=== PATIENT | female | born 1945 | race Caucasian/White ===

== ENCOUNTER 2021-09-09 16:48 | Inpatient (IN) | payer MEDICARE, BC ==
[~2021-09-09] VITALS: Ht 167.6 cm; Wt 165.8 kg
[2021-09-09] MEDS ORDERED: AMLO-187 PO (16:59)
[2021-09-09] MEDS ORDERED: PARO30TA45 PO (16:59)
[2021-09-09] MEDS ORDERED: TERA5CAP3 PO (16:59)
[2021-09-09] MEDS ORDERED: OXYM7.5T PO (16:59)
--- NOTE | 2021-09-09 17:00 | NUR ---
ADMISSION PT ARRIVES VIA [facility] AT 1630. SHE IS ON NRB @15L. SHE IS DISORIENTED. TELEMETRY APPLIED, VS ASSESSED. PT IS UNABLE TO ANSWER HISTORY QUESTIONS. MEDICATION HISTORY OBTAINED FROM HER HOME PHARMACY, HER WAS UNABLE TO LIST HER HOME MEDS. THEY REPORT COVID VACCINE X 2, BUT SHE IS UNVACCINATED FOR THIS SEASON'S FLU.
[2021-09-09] MEDS ORDERED: INFLUENZA VAX SCREEN BY RX. MC ONE (17:15)
--- NOTE | 2021-09-09 18:25 | NUR ---
REPORTS PT HAS TAKEN COUMADIN IN THE PAST FOR AF, PHARMACY CONFIRMS THEY HAVE FILLED IT FOR HER BUT NOT RECENTLY. PT
[2021-09-09 19:00] LABS: BASO % 0 % (0-3); EOS % 0 % (0-3); HEMATOCRIT 43.5 % (36.0-47.0); HEMOGLOBIN 14.2 g/dL (12.0-15.5); LYMPH # 0.3 x10^3/uL (1.0-4.8); LYMPH % 6 % (24-48); MEAN CORPUSCULAR HEMOGLOBIN 31 pg (25-35); MEAN CORPUSCULAR HGB CONC 33 g/dL (31-37); MEAN CORPUSCULAR VOLUME 94 fL (79-100); MONO # 0.4 x10^3/uL (0.0-1.1); MONO % 8 % (0-9); NEUT # 4.6 x10^3/uL (1.8-7.7); NEUT % 86 % (31-73); PLATELET COUNT 116 x10^3/uL (140-400); RED BLOOD COUNT 4.61 x10^6/uL (3.50-5.40); RED CELL DISTRIBUTION WIDTH 16.5 % (11.5-14.5); WHITE BLOOD COUNT 5.3 x10^3/uL (4.0-11.0)
[2021-09-09 19:22] LABS: ALBUMIN 3.3 g/dL (3.4-5.0); ALBUMIN/GLOBULIN RATIO 0.8 (1.0-1.7); CALCIUM 8.3 mg/dL (8.5-10.1); CREATININE 2.1 mg/dL (0.6-1.0); POTASSIUM 5.4 mmol/L (3.5-5.1); TOTAL BILIRUBIN 0.7 mg/dL (0.2-1.0); TOTAL PROTEIN 7.2 g/dL (6.4-8.2)
[2021-09-09 19:24] LABS: % BANDS 5 % (0-9); % LYMPHS 4 % (24-48); % MONOS 10 % (0-10); % SEGS 81 % (35-66); PLT ESTIMATE DECREASED (ADEQUATE)
[2021-09-09 19:35] VITALS: BP 122/71
[2021-09-09] MEDS: TERAZOSIN 5 MG CAPSULE. PO SCH (21:00)
[2021-09-09 21:12] LABS: BASE EXCESS ABG 3 mmol/L (-3-3); HCO3 ABG 34 mmol/L (21-28); PO2 ABG 109 mmHg (65-108); SAT O2 ABG 97 % (92-99)
[2021-09-09 21:17] LABS: FIO2 ABG 100 (NRB); PCO2 ABG 83 mmHg (35-46)
[2021-09-09] MEDS ORDERED: FUROSEMIDE 40 MG/4 ML VIAL. IVP ONE (22:30)
[2021-09-09 23:15] VITALS: BP 100/71
[2021-09-10 01:03] LABS: PCO2 ABG 70 mmHg (35-46)
[2021-09-10 01:04] LABS: BASE EXCESS ABG 2 mmol/L (-3-3); HCO3 ABG 31 mmol/L (21-28); PO2 ABG 114 mmHg (65-108); SAT O2 ABG 98 % (92-99)
[2021-09-10 03:20] VITALS: BP 104/64
--- NOTE | 2021-09-10 06:38 | RAD ---
XR CHEST 1V 09/10/2021 6:29 AM INDICATION: Acute respiratory failure COMPARISON: 09/09/2021 TECHNIQUE: Portable frontal view of the chest is provided. FINDINGS: The cardiomediastinal silhouette is similar in appearance. Increased perihilar interstitial and alveo lar airspace disease. Trace right pleural effusion. No pneumothorax. Moderate osteoarthrosis of the glenohumeral joints. IMPRESSION: Increase in perihilar mixed interstitial and alveolar airspace disease as compared to prior examinati on suggestive of worsening pulmonary infiltrates or pulmonary edema. Electronically signed by: Steffany Peter MD (09/10/2021 6:36 AM) [facility]
[2021-09-10 07:00] VITALS: BP 105/69
[2021-09-10] MEDS ORDERED: cefTRIAXone IV Push 1 GM VIAL. IVP SCH (07:00)
--- NOTE | 2021-09-10 07:54 | CONS ---
DATE OF CONSULTATION: 09/10/2021 REASON FOR CONSULTATION: I was asked to see this 76-year-old lady for acute respiratory failure. HISTORY OF PRESENT ILLNESS: The patient is currently on BiPAP and does not answer any of my questions or follow my commands. All of the information was obtained from nursing staff and chart. She has had shortness of breath and decreased level of consciousness for the past couple of days. EMS was called. Her O2 saturation on arrival was 67%. The patient was taken to [facility]. Her was very poor historian. Apparently, she has had 48 hours of increased sleepiness. Per RN, she is not on home oxygen. Her BMI is 58.7. She has atrial fibrillation and is on Coumadin. Her INR is 3.7. The patient was transferred to [facility] for further evaluation. The patient was placed on BiPAP. Currently, she is on BiPAP 16/4, rate of 12, FiO2 of 50%. Her O2 saturation is 96%. PAST MEDICAL HISTORY: Unknown. She has atrial fibrillation. Her INR is elevated. She is on Coumadin. She has morbid obesity. She had been on Dilaudid and oxymorphone per Primary for pain. ALLERGIES: No known drug allergies. MEDICATIONS: She was given Lasix 40 mg IV overnight. Norvasc and Paxil. SOCIAL HISTORY: Unknown. She is not able to give me any information. FAMILY HISTORY: Unknown. She is not able to give me any information. REVIEW OF SYSTEMS: As mentioned as above, I have discussed the patient with RN. Other systems are otherwise negative. PHYSICAL EXAMINATION: GENERAL: This is a morbidly obese lady. VITAL SIGNS: Her O2 saturation on BiPAP 16/4, rate of 12, FiO2 of 50% is 96%, respiratory rate 20, heart rate 100, blood pressure 104/64, temperature 97.4. HEENT: Normocephalic, atraumatic. Pupils are equal, round, reactive to light. She has BiPAP mask on. NECK: Short, thick. CARDIOVASCULAR: Irregularly irregular rhythm. CHEST: Inspection is normal. LUNGS: There is bilateral diminished breath sounds, dullness at the bases. ABDOMEN: Soft and obese. Bowel sounds are good. EXTREMITIES: There is no edema. LYMPHATICS: There is no lymphadenopathy. NEUROLOGIC: She does not follow my commands. SKIN: Chronic changes. LABORATORY DATA: I reviewed the following lab data: Sodium 138, potassium 5.4, chloride 102, CO2 of 33, BUN 47, creatinine 2.1. BNP 7660. INR at [facility] 3.7. ABG at 9:00, pH 7.23, pCO2 of 83, pO2 of 109. Repeat ABG at midnight, pH 7.27, pCO2 of 70, pO2 of 111 on 50% BiPAP. WBC 5.3, hemoglobin 14.2, platelets 116. I ordered a stat portable chest x-ray which does show bilateral infiltrates. Compared to the chest x-ray done yesterday at [facility] shows worsening. IMPRESSION: 1. Acute hypoxemic hypercarbic respiratory failure secondary to acute congestive heart failure, systolic versus diastolic; pneumonia, doubt thromboembolic disease. Her INR is 3.7. 2. Abnormal chest x-ray. 3. Acute congestive heart failure. 4. Pneumonia. 5. Obesity, suspect obstructive sleep apnea-hypopnea syndrome and obesity hypoventilation syndrome. 6. Encephalopathy, multifactorial. 7. Acute kidney injury. 8. Hyperkalemia. 9. Atrial fibrillation, on anticoagulation. PLAN AND RECOMMENDATIONS: 1. Titrate FiO2 to keep O2 saturation 90%, not higher. She is hypercarbic. 2. Stat portable chest x-ray reviewed, it showed bilateral infiltrates. 3. Lasix was given. Keep intake less than output. Monitor creatinine and potassium. 4. I will add Rocephin and doxycycline. 5. Elevate head of bed. 6. Her INR is 3.7. I did recommend repeat. 7. Protonix for stress ulcer prophylaxis. 8. Start bronchodilator Atrovent only. She has atrial fibrillation. Avoid albuterol. 9. N.p.o. until she is fully awake. 10. ABG. 11. The findings and recommendations were discussed with RN. Thank you very much for allowing me to participate in care of this very nice lady. PRAVEEN DR: Parish TID: [id number]
[2021-09-10] MEDS: PANTOPRAZOLE IV PUSH 40 MG VIAL. IVP SCH (08:54)
[2021-09-10] MEDS: PARoxetine 20 MG TABLET PO SCH (08:54)
[2021-09-10] MEDS: DOXYCYCLINE HYCLATE 100 MG in IV DEXTROSE 5% 100ML 100 ML IV SCH ×2 (08:55→21:02)
[2021-09-10] MEDS: FLU VACC QUAD 21-22 (6MOS+) PF 0.5 ML SYRINGE. VAX IM ONE ×2 (09:00→10:25)
[2021-09-10] MEDS: IPRATROPIUM BROMIDE 0.5 MG/2.5 ML NEBU. NEB SCH ×4 (09:08→20:00)
[2021-09-10 09:34] LABS: BASE EXCESS ABG 3 mmol/L (-3-3); HCO3 ABG 30 mmol/L (21-28); PCO2 ABG 59 mmHg (35-46); PO2 ABG 72 mmHg (65-108); SAT O2 ABG 94 % (92-99)
[2021-09-10 09:35] LABS: FIO2 ABG 3L N.C.
[2021-09-10 10:43] VITALS: BP 96/56
--- NOTE | 2021-09-10 11:51 | PN ---
DATE: 09/10/2021 SUBJECTIVE: The patient was admitted yesterday as a transfer from [facility] with acute probably on chronic hypoxic hypercapnic respiratory failure. She has also supratherapeutic INR. On arrival here, her blood gas continued to show respiratory acidosis. Her pH was 7.23, pCO2 of 83 and bicarb was 34; and therefore, the patient was put on BiPAP machine and she was on it overnight and this morning her pH is up to 7.33, pCO2 down to 59, oxygen saturation was 72 and she is maintaining her oxygen saturation at 94% on 3 liters of oxygen by nasal cannula. PHYSICAL EXAMINATION: GENERAL: When I examined her, she looked well and was clearly in no apparent respiratory distress. She was somewhat pale, but not jaundiced or cyanosed. No lymphadenopathy, no thyromegaly, no jugular venous distention. No lower limb edema. VITAL SIGNS: Her heart rate was 100, blood pressure was 96/56, temperature was 98, respiratory rate was 16 and oxygen saturation was 91% on 3 liters of oxygen. HEAD, EYES, EARS, NOSE AND THROAT: Normocephalic, atraumatic. NECK: Supple. HEART: Normal first and second heart sounds. No gallop or murmur. CHEST: Clear to auscultation. No crepitation or rhonchi. ABDOMEN: Distended, soft, nontender. NEUROLOGIC: She was awake, alert, responding appropriately. All cranial nerves intact. She moves extremities without difficulty. She does have flapping tremor. Her intake and output are incompletely recorded. LABORATORY DATA: Showed white cell count 5300, hemoglobin 14; hematocrit 44; MCV 94 and platelet count of 116,000. Her chemistry is stable and showed a serum sodium 138, potassium 5.4, chloride 102, bicarbonate 33, anion gap of 3, BUN 47, creatinine 2.1. Estimated GFR was 23 mL per minute. Her glucose was 119, calcium was 8.3. Total bilirubin, AST, ALT, alkaline phosphatase were normal. Beta-natriuretic peptide was 7668. Total protein was 7.2, albumin was 3.3. ASSESSMENT: In summary, this is a 76-year-old female patient with acute on chronic hypoxic hypercapnic respiratory failure, likely multifactorial. She is on narcotic use as well as probable morbid obesity and obstructive sleep apnea. Other problems include hypertension, acute versus acute on chronic kidney injury. PLAN: She has an indwelling Auguste catheter. We did consult the patented hogshead assembler as well as the assistant track coach to assist with the management. Meanwhile, we will repeat her prothrombin time as well as BMP this morning and again tomorrow. CHEN/TEMITOPE/MELITA DR: Rigo TID: [id number]
[2021-09-10 12:15] LABS: CALCIUM 8.2 mg/dL (8.5-10.1); CREATININE 1.7 mg/dL (0.6-1.0); GFR 29.4; POTASSIUM 4.4 mmol/L (3.5-5.1)
[2021-09-10 12:16] LABS: PROTHROMBIN TIME PATIENT 34.8 SEC (11.7-14.0)
--- NOTE | 2021-09-10 12:27 | PDOC2 ---
CONSULT Date of Consult Date of Consult DATE: 09/10/21 TIME: 12:27 Reason for Consult Reason for Consult: CHF and atrial fibrillation Referring Physician Referring Physician: Dr. Us Identification/Chief Complaint Chief Complaint Shortness of breath Source Source: Chart review, Patient History of Present Illness Reason for Visit: 76-year-old morbidly obese female apparently was found hard to arouse by her this morning prompting EMS call. Upon arrival to [facility], she was found to be in acute on chronic hypoxic respiratory failure and hence transferred to [facility] for further management. Patient denied any chest pain, palpitations or syncope. According to her , she has been more somnolent and confused for last 2 to 3 days. Her Dilaudid was apparently decreased from 10 to 7.5 with concomitant oxymorphone use recently. Cardiology has been consulted for possible congestive heart failure and also atrial fibrillation. Patient stated that she was diagnosed with cardiac arrhythmia several years ago and placed on warfarin but she has not had any recent cardiology follow-up. She apparently had cardiac catheterization at [facility] and at [facility] more than 10 years ago and was told she did not have any blockages. Past Medical History Past Medical History Permanent atrial fibrillation Hypertension Morbid obesity Current Medications Current Medications Current Medications Info (FLU VACCINE SCREEN per RX) 1 each 1X ONCE ; Start 09/09/21 at 17:15; Stop 09/09/21 at 17:16; Status UNV Influenza Virus Vaccine Quadrival (Flulaval Quad [id number] Syringe) 0.5 ml ONCE ONCE VAX IM ; Start 09/10/21 at 09:00; Stop 09/10/21 at 09:01; Status DC Amlodipine Besylate (Norvasc) 10 mg DAILY PO Last administered on 09/10/21at 0 8:54; Start 09/10/21 at 09:00 Terazosin HCl (Hytrin) 5 mg HS PO Last administered on 09/09/21at 21:00; Start 09/09/21 at 21:00 Paroxetine HCl (Paxil) 60 mg DAILY PO Last administered on 09/10/21at 08:54; Start 09/10/21 at 09:00 Furosemide (Lasix) 40 mg 1X ONCE IVP Last administered on 09/09/21at 23:39; Start 09/09/21 at 22:30; Stop 09/09/21 at 22:31; Status DC Ipratropium [place] (Atrovent) 0.5 mg RTQID NEB Last administered on 09/10/21at 11:55; Start 09/10/21 at 08:00 Ceftriaxone Sodium (Rocephin) 1 gm Q24H IVP Last administered on 09/10/21at 08:54; Start 09/10/21 at 07:00 Doxycycline Hyclate 100 mg/ Dextrose 100 ml @ 50 mls/hr Q12HR IV Last administered on 09/10/21at 08:55; Start 09/10/21 at 09:00 Pantoprazole Sodium (PROTONIX VIAL for IV PUSH) 40 mg DAILYAC IVP Last administered on 09/10/21at 08:54; Start 09/10/21 at 07:30 Active Scripts Active Reported Oxymorphone Hcl 7.5 Mg Tab.er.12h 7.5 Mg PO BID Amlodipine Besylate 10 Mg Tablet 10 Mg PO DAILY Terazosin Hcl 5 Mg Capsule 5 Mg PO HS Paxil (Paroxetine Hcl) 30 Mg Tablet 60 Mg PO DAILY Allergies Allergies: Coded Allergies: No Known Drug Allergies (Unverified , 09/09/21) ROS General: YES: Fatigue PSYCHOLOGICAL ROS: No: Hallucinations Eyes: No Loss of vision HEENT: No: Epistaxis Respiratory: YES: Shortness of breath Cardiovascular: yes Edema; No Chest Pain Gastrointestinal: No Vomiting Genitourinary: No Hematuria Neurological: Yes Confusion; No Seizures Skin: No Rash Physical Exam General: Alert, mild distress HEENT: Atraumatic Lungs: Other (Scattered crepitations bilaterally) Heart: Other (Heart rate irregular) Abdomen: Soft Extremities: Other (1-2+ pitting with chronic changes and discoloration s uspicious for venous insufficiency) Psych/Mental Status: Mood NL Vitals VITALS Vital Signs Date Time Temp Pulse Resp B/P (MAP) Pulse Ox O2 Delivery O2 Flow Rate FiO2 09/10/21 11:57 94 Nasal Cannula 3.0 09/10/21 10:43 98.0 100 16 96/56 (69) 98.0 Labs Labs Laboratory Tests Test 09/09/21 18:55 09/09/21 21:05 09/10/21 00:00 09/10/21 09:00 White Blood Count 5.3 x10^3/uL (4.0-11.0) Red Blood Count 4.61 x10^6/uL (3.50-5.40) Hemoglobin 14.2 g/dL (12.0-15.5) Hematocrit 43.5 % (36.0-47.0) Mean Corpuscular Volume 94 fL (79-100) Mean Corpuscular Hemoglobin 31 pg (25-35) Mean Corpuscular Hemoglobin Concent 33 g/dL (31-37) Red Cell Distribution Width 16.5 % (11.5-14.5) Platelet Count 116 x10^3/uL (140-400) Neutrophils (%) (Auto) 86 % (31-73) Lymphocytes (%) (Auto) 6 % (24-48) Monocytes (%) (Auto) 8 % (0-9) Eosinophils (%) (Auto) 0 % (0-3) Basophils (%) (Auto) 0 % (0-3) Neutrophils # (Auto) 4.6 x10^3/uL (1.8-7.7) Lymphocytes # (Auto) 0.3 x10^3/uL (1.0-4.8) Monocytes # (Auto) 0.4 x10^3/uL (0.0-1.1) Eosinophils # (Auto) 0.0 x10^3/uL (0.0-0.7) Basophils # (Auto) 0.0 x10^3/uL (0.0-0.2) Segmented Neutrophils % 81 % (35-66) Band Neutrophils % 5 % (0-9) Lymphocytes % 4 % (24-48) Monocytes % 10 % (0-10) Platelet Estimate Decreased (ADEQUATE) Sodium Level 138 mmol/L (136-145) Potassium Level 5.4 mmol/L (3.5-5.1) Chloride Level 102 mmol/L (98-107) Carbon Dioxide Level 33 mmol/L (21-32) Anion Gap 3 (6-14) Blood Urea Nitrogen 47 mg/dL (7-20) Creatinine 2.1 mg/dL (0.6-1.0) Estimated GFR (Cockcroft-Gault) 23.0 BUN/Creatinine Ratio 22 (6-20) Glucose Level 119 mg/dL (70-99) Calcium Level 8.3 mg/dL (8.5-10.1) Total Bilirubin 0.7 mg/dL (0.2-1.0) Aspartate Amino Transf (AST/SGOT) 21 U/L (15-37) Alanine Aminotransferase (ALT/SGPT) 26 U/L (14-59) Alkaline Phosphatase 94 U/L (46-116) ZD-[id number]-[id number]-Type Natriuretic Peptide 7660 pg/mL (0-124) Total Protein 7.2 g/dL (6.4-8.2) Albumin 3.3 g/dL (3.4-5.0) Albumin/Globulin Ratio 0.8 (1.0-1.7) O2 Saturation 97 % (92-99) 98 % (92-99) 94 % (92-99) Arterial Blood pH 7.23 (7.35-7.45) 7.27 (7.35-7.45) 7.33 (7.35-7.45) Arterial Blood pCO2 at Patient Temp 83 mmHg (35-46) 70 mmHg (35-46) 59 mmHg (35-46) Arterial Blood pO2 at Patient Temp 109 mmHg (65-108) 114 mmHg (65-108) 72 mmHg (65-108) Arterial Blood HCO3 34 mmol/L (21-28) 31 mmol/L (21-28) 30 mmol/L (21-28) Arterial Blood Base Excess 3 mmol/L (-3-3) 2 mmol/L (-3-3) 3 mmol/L (-3-3) FiO2 100 (nrb) 50 (bipap) 3l n.c. Test 09/10/21 11:54 Prothrombin Time 34.8 SEC (11.7-14.0) Prothromb Time International Ratio 3.6 (0.8-1.1) Sodium Level 140 mmol/L (136-145) Potassium Level 4.4 mmol/L (3.5-5.1) Chloride Level 102 mmol/L (98-107) Carbon Dioxide Level 35 mmol/L (21-32) Anion Gap 3 (6-14) Blood Urea Nitrogen 45 mg/dL (7-20) Creatinine 1.7 mg/dL (0.6-1.0) Estimated GFR (Cockcroft-Gault) 29.4 Glucose Level 128 mg/dL (70-99) Calcium Level 8.2 mg/dL (8.5-10.1) Laboratory Tests Test 09/09/21 18:55 11/5/21 21:05 09/10/21 00:00 09/10/21 09:00 White Blood Count 5.3 x10^3/uL (4.0-11.0) Red Blood Count 4.61 x10^6/uL (3.50-5.40) Hemoglobin 14.2 g/dL (12.0-15.5) Hematocrit 43.5 % (36.0-47.0) Mean Corpuscular Volume 94 fL (79-100) Mean Corpuscular Hemoglobin 31 pg (25-35) Mean Corpuscular Hemoglobin Concent 33 g/dL (31-37) Red Cell Distribution Width 16.5 % (11.5-14.5) Platelet Count 116 x10^3/uL (140-400) Neutrophils (%) (Auto) 86 % (31-73) Lymphocytes (%) (Auto) 6 % (24-48) Monocytes (%) (Auto) 8 % (0-9) Eosinophils (%) (Auto) 0 % (0-3) Basophils (%) (Auto) 0 % (0-3) Neutrophils # (Auto) 4.6 x10^3/uL (1.8-7.7) Lymphocytes # (Auto) 0.3 x10^3/uL (1.0-4.8) Monocytes # (Auto) 0.4 x10^3/uL (0.0-1.1) Eosinophils # (Auto) 0.0 x10^3/uL (0.0-0.7) Basophils # (Auto) 0.0 x10^3/uL (0.0-0.2) Segmented Neutrophils % 81 % (35-66) Band Neutrophils % 5 % (0-9) Lymphocytes % 4 % (24-48) Monocytes % 10 % (0-10) Platelet Estimate Decreased (ADEQUATE) Sodium Level 138 mmol/L (136-145) Potassium Level 5.4 mmol/L (3.5-5.1) Chloride Level 102 mmol/L (98-107) Carbon Dioxide Level 33 mmol/L (21-32) Anion Gap 3 (6-14) Blood Urea Nitrogen 47 mg/dL (7-20) Creatinine 2.1 mg/dL (0.6-1.0) Estimated GFR (Cockcroft-Gault) 23.0 BUN/Creatinine Ratio 22 (6-20) Glucose Level 119 mg/dL (70-99) Calcium Level 8.3 mg/dL (8.5-10.1) Total Bilirubin 0.7 mg/dL (0.2-1.0) Aspartate Amino Transf (AST/SGOT) 21 U/L (15-37) Alanine Aminotransferase (ALT/SGPT) 26 U/L (14-59) Alkaline Phosphatase 94 U/L (46-116) KP-[id number]-G-Type Natriuretic Peptide 7660 pg/mL (0-124) Total Protein 7.2 g/dL (6.4-8.2) Albumin 3.3 g/dL (3.4-5.0) Albumin/Globulin Ratio 0.8 (1.0-1.7) O2 Saturation 97 % (92-99) 98 % (92-99) 94 % (92-99) Arterial Blood pH 7.23 (7.35-7.45) 7.27 (7.35-7.45) 7.33 (7.35-7.45) Arterial Blood pCO2 at Patient Temp 83 mmHg (35-46) 70 mmHg (35-46) 59 mmHg (35-46) Arterial Blood pO2 at Patient Temp 109 mmHg (65-108) 114 mmHg (65-108) 72 mmHg (65-108) Arterial Blood HCO3 34 mmol/L (21-28) 31 mmol/L (21-28) 30 mmol/L (21-28) Arterial Blood Base Excess 3 mmol/L (-3-3) 2 mmol/L (-3-3) 3 mmol/L (-3-3) FiO2 100 (nrb) 50 (bipap) 3l n.c. Test 09/10/21 11:54 Prothrombin Time 34.8 SEC (11.7-14.0) Prothromb Time International Ratio 3.6 (0.8-1.1) Sodium Level 140 mmol/L (136-145) Potassium Level 4.4 mmol/L (3.5-5.1) Chloride Level 102 mmol/L (98-107) Carbon Dioxide Level 35 mmol/L (21-32) Anion Gap 3 (6-14) Blood Urea Nitrogen 45 mg/dL (7-20) Creatinine 1.7 mg/dL (0.6-1.0) Estimated GFR (Cockcroft-Gault) 29.4 Glucose Level 128 mg/dL (70-99) Calcium Level 8.2 mg/dL (8.5-10.1) Assessment/Plan Assessment/Plan 1. Acute respiratory failure, multifactorial secondary to combination of acute on chronic diastolic heart failure, pneumonia, PHYLICIA/obesity hypoventilation. Pulmonary team following. 2. Acute on chronic diastolic heart failure. Continue gentle diuresis with close monitoring of BUN/creatinine. Check 2D echo to assess LV systolic function. 3. Atrial fibrillation, most probably permanent, rate relatively well controlled. Hold warfarin for supratherapeutic INR. 4. Acute on chronic renal insufficiency, hyperkalemia: Consult nephrology team. 5. Hypertension: Controlled Thank you for your consultation EDWIN EAST MD Sep 10, 2021 12:27
--- NOTE | 2021-09-10 13:52 | HP ---
DATE OF SERVICE: 09/10/2021 ADMIT DATE: 09/09/2021 HISTORY OF PRESENT ILLNESS: The patient is a 76-year-old female patient who presented to the Emergency Room of [facility] with shortness of breath. According to her, she had had the flu shot done about 8 days ago and her noted that she has started developing shortness of breath that has worsened; however, it has been reported that the patient has been fatigued for the last 2 months without any inciting event, trauma or other changes in medication or overall health. She reports the patient had to be aroused by family in the morning before admission, prompting them to call EMS. On arrival, the patient was found to be hypoxic with oxygen saturation of only 67% on room air; otherwise, hemodynamically stable. Her oxygen saturation improved with nonrebreather mask en route to the hospital. There is no reported trauma, change in medication, foul play or other concerning exposure or stimulus per family on the scene. On arrival, however, the patient denied any chest pain and the only complaint is shortness of breath. Her and son who came, they reported the patient has 48 hours of increased sleepiness and confusion without any trauma. She admits only medication change with a decrease in her Dilaudid from 10 to 7.5 with concomitant oxymorphone use as the patient has no prior cardiac or diabetic history. She is on warfarin for DVT. She was extensively investigated in the Emergency Room and has had lab work as well as imaging studies. Her lab work was unremarkable except for mild thrombocytopenia. She has impaired kidney function. Her troponin I was slightly elevated at 60, with the normal range between 4-50. Her beta natriuretic peptide was high at 6916. Her serum creatinine was high at 2.1. Unfortunately, there are no other labs to compare with. Her arterial blood gas showed a pH of 7.29, pCO2 of 78, pO2 of 70, bicarbonate 37 and oxygen saturation was 91% on room air. Urinalysis is essentially unremarkable and tox screen was positive for opiates, negative for all other medication. Her chest x-ray showed the heart is enlarged. Lungs are hypoextended, central pulmonary vasculature is prominent. There is diffuse interstitial prominence, small right pleural effusion and trace fluid along the minor fissure, no pneumothorax; severe bilateral glenohumeral osteoarthrosis with multiple surgical ossified bodies bilaterally. The patient was treated with furosemide and was started on BiPAP machine and was transferred to [facility] with diagnosis of acute on chronic hypoxic hypercapnic respiratory failure, fluid overload, supratherapeutic INR and opiate dependence. PAST MEDICAL HISTORY: Significant for hypertension, chronic kidney disease, generalized osteoarthritis. PAST SURGICAL HISTORY: Significant for bilateral cataract extraction, tonsillectomy, colonoscopy and esophagogastroduodenoscopy. ALLERGIES: She has no known drug allergies. MEDICATIONS: She is currently on the following medications: She is on terazosin 5 mg at bedtime, amlodipine 10 mg once a day, oxymorphone 7.5 mg twice a day, paroxetine 30 mg daily. FAMILY HISTORY: She has one brother and two sisters, younger and alive. Her brother has coronary artery disease. Sisters are healthy. Her father in his 80s and mother also in her 80s, the cause of is not known to her. SOCIAL HISTORY: She is . She has 2 sons. She never smoked, does not drink alcohol or recreational drugs. She is a housewife. REVIEW OF SYSTEMS: The patient denied any blurring of vision, has bilateral cataract extraction, but denied any glaucoma or macular degeneration. Denied any earache, tinnitus or sensorineural deafness. Denied any nosebleed, stuffy nose or postnasal drip. Denied any sore throat, sore tongue, toothache, hoarseness of voice or difficulty swallowing. Denied any dysuria, frequency or hematuria. Denied any chest pain. Did complain of shortness of breath, but denied any orthopnea or paroxysmal nocturnal dyspnea. Denied any cough, phlegm or hemoptysis. Denied any dizziness, lightheadedness or vertigo. PHYSICAL EXAMINATION: GENERAL: On arrival to the Emergency Room, the patient was somewhat tachypneic, tachycardic. She was pale, but no jaundice, cyanosis, no lymphadenopathy, no thyromegaly, no jugular venous distention. No limb edema. VITAL SIGNS: Her heart rate was 120, blood pressure 122/67, temperature 97.9, respiratory rate 20, and oxygen saturation was 93%. HEAD, EYES, EARS, NOSE, AND THROAT: Normocephalic, atraumatic. NECK: Supple. HEART: Normal first and second heart sounds. No gallop, rub or murmur. CHEST: Clear to auscultation. No crepitation or rhonchi. ABDOMEN: Distended, soft, nontender, no guarding or rigidity. No organomegaly. All hernial orifice intact. Bowel sounds normal. NEUROLOGIC: She was somewhat lethargic, alert to time and place. Her cranial nerves are grossly intact. She has normal motor and sensory function with no focal deficit. LABORATORY DATA: While in the Emergency Room, she had lab work showed a white cell count of 5300, hemoglobin 14.7, hematocrit 45, MCV 95 and platelet count of 137,000 with a manual differential showed 86% polymorphs, 7% lymphocytes. Her arterial blood gas showed a pH of 7.29, pCO2 of 78, pO2 of 70, bicarbonate 37 and oxygen saturation was 91% on FiO2 of 21%. Her prothrombin time was 37.6, INR of 3.7 and APTT was 39. Her chemistry showed a serum sodium 137, potassium 5.1, chloride 100, bicarbonate 33, anion gap of 4, BUN 45, creatinine 2.1. Estimated GFR was 23 mL per minute. Her glucose 142. Lactic acid was 1, calcium was 8.6. Total bilirubin, AST, ALT, alkaline phosphatase are normal. Her glucose 142, calcium was 8.6. Total bilirubin, AST, ALT, alkaline phosphatase are normal. CK was 46. Ammonia was 28. Troponin I high sensitivity was 60. Beta natriuretic peptide was 6916, total protein 7.1, albumin was 2.5. Her CT scan of the head showed no acute intracranial process. She has mild cerebral volume loss, mild chronic small vessel ischemic disease and her chest x-ray showed the heart is enlarged. Lungs are hypoextended, central pulmonary vasculature is prominent. There is diffuse interstitial prominence, small right pleural effusion and trace fluid along with minor fissure. No pneumothorax. Severe bilateral glenohumeral osteoarthrosis with multiple surgical ossified bodies bilaterally. ASSESSMENT AND PLAN: The patient was diagnosed with acute hypoxic hypercapnic respiratory failure, probably multifactorial including narcotic use, probably morbid obesity and obstructive sleep apnea. She does have supratherapeutic INR. Chronic versus acute on chronic kidney injury and opiate dependence. The patient was admitted to [facility]. We have consulted the complaint adjuster. She was started on BiPAP machine and recommended to continue to monitor all her labs and consult the complaint adjuster as well as postal service mail processor. AMM/EFRA/CELE DR: Rigo TID: [id number]
[2021-09-10 15:12] VITALS: BP 104/76
[2021-09-10 19:25] VITALS: BP 149/72
[2021-09-10] MEDS: TERAZOSIN 5 MG CAPSULE. PO SCH (21:02)
[2021-09-10] MEDS: ACETAMINOPHEN 500 MG TABLET PO PRN (22:30)
[2021-09-10] MEDS: LIDOCAINE (700MG/PATCH) PATCH. TD SCH (22:31)
[2021-09-10 23:38] VITALS: BP 111/71
[2021-09-11 03:40] VITALS: BP 127/82
[2021-09-11 04:01] LABS: BASO % 0 % (0-3); EOS % 0 % (0-3); HEMATOCRIT 42.1 % (36.0-47.0); HEMOGLOBIN 13.7 g/dL (12.0-15.5); LYMPH # 0.4 x10^3/uL (1.0-4.8); LYMPH % 10 % (24-48); MEAN CORPUSCULAR HEMOGLOBIN 30 pg (25-35); MEAN CORPUSCULAR HGB CONC 33 g/dL (31-37); MEAN CORPUSCULAR VOLUME 93 fL (79-100); MONO # 0.3 x10^3/uL (0.0-1.1); MONO % 8 % (0-9); NEUT # 3.1 x10^3/uL (1.8-7.7); NEUT % 82 % (31-73); PLATELET COUNT 111 x10^3/uL (140-400); RED BLOOD COUNT 4.54 x10^6/uL (3.50-5.40); RED CELL DISTRIBUTION WIDTH 15.9 % (11.5-14.5); WHITE BLOOD COUNT 3.8 x10^3/uL (4.0-11.0)
[2021-09-11 04:52] LABS: ALBUMIN 2.8 g/dL (3.4-5.0); ALBUMIN/GLOBULIN RATIO 0.8 (1.0-1.7); CALCIUM 8.1 mg/dL (8.5-10.1); CREATININE 1.4 mg/dL (0.6-1.0); GFR 36.8; POTASSIUM 4.2 mmol/L (3.5-5.1); TOTAL BILIRUBIN 0.8 mg/dL (0.2-1.0); TOTAL PROTEIN 6.3 g/dL (6.4-8.2)
--- NOTE | 2021-09-11 07:30 | PDOC ---
PULMONARY PROGRESS NOTES DATE: 09/11/21 TIME: 07:28 Subjective alert on bipap sob better not on home 02 Vitals Vital Signs Date Time Temp Pulse Resp B/P (MAP) Pulse Ox O2 Delivery O2 Flow Rate FiO2 09/11/21 05:42 97 BiPAP/CPAP 09/11/21 03:40 82 22 127/82 (97) 09/10/21 23:38 98.1 3.0 98.1 ROS: No Nausea General: Alert HEENT: Other (nc at perrl bipap mask) Lungs: Crackles Cardiovascular: S1 Abdomen: Soft, Non-tender, Other (obese) Neuro Exam: Alert Extremities: Other (edema) Skin: Warm Labs Laboratory Tests Test 09/09/21 18:55 09/09/21 21:05 09/10/21 00:00 09/10/21 09:00 White Blood Count 5.3 x10^3/uL (4.0-11.0) Red Blood Count 4.61 x10^6/uL (3.50-5.40) Hemoglobin 14.2 g/dL (12.0-15.5) Hematocrit 43.5 % (36.0-47.0) Mean Corpuscular Volume 94 fL (79-100) Mean Corpuscular Hemoglobin 31 pg (25-35) Mean Corpuscular Hemoglobin Concent 33 g/dL (31-37) Red Cell Distribution Width 16.5 % (11.5-14.5) Platelet Count 116 x10^3/uL (140-400) Neutrophils (%) (Auto) 86 % (31-73) Lymphocytes (%) (Auto) 6 % (24-48) Monocytes (%) (Auto) 8 % (0-9) Eosinophils (%) (Auto) 0 % (0-3) Basophils (%) (Auto) 0 % (0-3) Neutrophils # (Auto) 4.6 x10^3/uL (1.8-7.7) Lymphocytes # (Auto) 0.3 x10^3/uL (1.0-4.8) Monocytes # (Auto) 0.4 x10^3/uL (0.0-1.1) Eosinophils # (Auto) 0.0 x10^3/uL (0.0-0.7) Basophils # (Auto) 0.0 x10^3/uL (0.0-0.2) Segmented Neutrophils % 81 % (35-66) Band Neutrophils % 5 % (0-9) Lymphocytes % 4 % (24-48) Monocytes % 10 % (0-10) Platelet Estimate Decreased (ADEQUATE) Sodium Level 138 mmol/L (136-145) Potassium Level 5.4 mmol/L (3.5-5.1) Chloride Level 102 mmol/L (98-107) Carbon Dioxide Level 33 mmol/L (21-32) Anion Gap 3 (6-14) Blood Urea Nitrogen 47 mg/dL (7-20) Creatinine 2.1 mg/dL (0.6-1.0) Estimated GFR (Cockcroft-Gault) 23.0 BUN/Creatinine Ratio 22 (6-20) Glucose Level 119 mg/dL (70-99) Calcium Level 8.3 mg/dL (8.5-10.1) Total Bilirubin 0.7 mg/dL (0.2-1.0) Aspartate Amino Transf (AST/SGOT) 21 U/L (15-37) Alanine Aminotransferase (ALT/SGPT) 26 U/L (14-59) Alkaline Phosphatase 94 U/L (46-116) DJ-Ekh-Y-Type Natriuretic Peptide 7660 pg/mL (0-124) Total Protein 7.2 g/dL (6.4-8.2) Albumin 3.3 g/dL (3.4-5.0) Albumin/Globulin Ratio 0.8 (1.0-1.7) O2 Saturation 97 % (92-99) 98 % (92-99) 94 % (92-99) Arterial Blood pH 7.23 (7.35-7.45) 7.27 (7.35-7.45) 7.33 (7.35-7.45) Arterial Blood pCO2 at Patient Temp 83 mmHg (35-46) 70 mmHg (35-46) 59 mmHg (35-46) Arterial Blood pO2 at Patient Temp 109 mmHg (65-108) 114 mmHg (65-108) 72 mmHg (65-108) Arterial Blood HCO3 34 mmol/L (21-28) 31 mmol/L (21-28) 30 mmol/L (21-28) Arterial Blood Base Excess 3 mmol/L (-3-3) 2 mmol/L (-3-3) 3 mmol/L (-3-3) FiO2 100 (nrb) 50 (bipap) 3l n.c. Test 09/10/21 11:54 09/11/21 03:30 Prothrombin Time 34.8 SEC (11.7-14.0) Prothromb Time International Ratio 3.6 (0.8-1.1) Sodium Level 140 mmol/L (136-145) 141 mmol/L (136-145) Potassium Level 4.4 mmol/L (3.5-5.1) 4.2 mmol/L (3.5-5.1) Chloride Level 102 mmol/L (98-107) 104 mmol/L (98-107) Carbon Dioxide Level 35 mmol/L (21-32) 36 mmol/L (21-32) Anion Gap 3 (6-14) 1 (6-14) Blood Urea Nitrogen 45 mg/dL (7-20) 37 mg/dL (7-20) Creatinine 1.7 mg/dL (0.6-1.0) 1.4 mg/dL (0.6-1.0) Estimated GFR (Cockcroft-Gault) 29.4 36.8 Glucose Level 128 mg/dL (70-99) 95 mg/dL (70-99) Calcium Level 8.2 mg/dL (8.5-10.1) 8.1 mg/dL (8.5-10.1) White Blood Count 3.8 x10^3/uL (4.0-11.0) Red Blood Count 4.54 x10^6/uL (3.50-5.40) Hemoglobin 13.7 g/dL (12.0-15.5) Hematocrit 42.1 % (36.0-47.0) Mean Corpuscular Volume 93 fL (79-100) Mean Corpuscular Hemoglobin 30 pg (25-35) Mean Corpuscular Hemoglobin Concent 33 g/dL (31-37) Red Cell Distribution Width 15.9 % (11.5-14.5) Platelet Count 111 x10^3/uL (140-400) Neutrophils (%) (Auto) 82 % (31-73) Lymphocytes (%) (Auto) 10 % (24-48) Monocytes (%) (Auto) 8 % (0-9) Eosinophils (%) (Auto) 0 % (0-3) Basophils (%) (Auto) 0 % (0-3) Neutrophils # (Auto) 3.1 x10^3/uL (1.8-7.7) Lymphocytes # (Auto) 0.4 x10^3/uL (1.0-4.8) Monocytes # (Auto) 0.3 x10^3/uL (0.0-1.1) Eosinophils # (Auto) 0.0 x10^3/uL (0.0-0.7) Basophils # (Auto) 0.0 x10^3/uL (0.0-0.2) BUN/Creatinine Ratio 26 (6-20) Total Bilirubin 0.8 mg/dL (0.2-1.0) Aspartate Amino Transf (AST/SGOT) 20 U/L (15-37) Alanine Aminotransferase (ALT/SGPT) 27 U/L (14-59) Alkaline Phosphatase 81 U/L (46-116) Ammonia 13 mcmol/L (11-34) Total Protein 6.3 g/dL (6.4-8.2) Albumin 2.8 g/dL (3.4-5.0) Albumin/Globulin Ratio 0.8 (1.0-1.7) Laboratory Tests Test 09/10/21 09:00 09/10/21 11:54 09/11/21 03:30 O2 Saturation 94 % (92-99) Arterial Blood pH 7.33 (7.35-7.45) Arterial Blood pCO2 at Patient Temp 59 mmHg (35-46) Arterial Blood pO2 at Patient Temp 72 mmHg (65-108) Arterial Blood HCO3 30 mmol/L (21-28) Arterial Blood Base Excess 3 mmol/L (-3-3) FiO2 3l n.c. Prothrombin Time 34.8 SEC (11.7-14.0) Prothromb Time International Ratio 3.6 (0.8-1.1) Sodium Level 140 mmol/L (136-145) 141 mmol/L (136-145) Potassium Level 4.4 mmol/L (3.5-5.1) 4.2 mmol/L (3.5-5.1) Chloride Level 102 mmol/L (98-107) 104 mmol/L (98-107) Carbon Dioxide Level 35 mmol/L (21-32) 36 mmol/L (21-32) Anion Gap 3 (6-14) 1 (6-14) Blood Urea Nitrogen 45 mg/dL (7-20) 37 mg/dL (7-20) Creatinine 1.7 mg/dL (0.6-1.0) 1.4 mg/dL (0.6-1.0) Estimated GFR (Cockcroft-Gault) 29.4 36.8 Glucose Level 128 mg/dL (70-99) 95 mg/dL (70-99) Calcium Level 8.2 mg/dL (8.5-10.1) 8.1 mg/dL (8.5-10.1) White Blood Count 3.8 x10^3/uL (4.0-11.0) Red Blood Count 4.54 x10^6/uL (3.50-5.40) Hemoglobin 13.7 g/dL (12.0-15.5) Hematocrit 42.1 % (36.0-47.0) Mean Corpuscular Volume 93 fL (79-100) Mean Corpuscular Hemoglobin 30 pg (25-35) Mean Corpuscular Hemoglobin Concent 33 g/dL (31-37) Red Cell Distribution Width 15.9 % (11.5-14.5) Platelet Count 111 x10^3/uL (140-400) Neutrophils (%) (Auto) 82 % (31-73) Lymphocytes (%) (Auto) 10 % (24-48) Monocytes (%) (Auto) 8 % (0-9) Eosinophils (%) (Auto) 0 % (0-3) Basophils (%) (Auto) 0 % (0-3) Neutrophils # (Auto) 3.1 x10^3/uL (1.8-7.7) Lymphocytes # (Auto) 0.4 x10^3/uL (1.0-4.8) Monocytes # (Auto) 0.3 x10^3/uL (0.0-1.1) Eosinophils # (Auto) 0.0 x10^3/uL (0.0-0.7) Basophils # (Auto) 0.0 x10^3/uL (0.0-0.2) BUN/Creatinine Ratio 26 (6-20) Total Bilirubin 0.8 mg/dL (0.2-1.0) Aspartate Amino Transf (AST/SGOT) 20 U/L (15-37) Alanine Aminotransferase (ALT/SGPT) 27 U/L (14-59) Alkaline Phosphatase 81 U/L (46-116) Ammonia 13 mcmol/L (11-34) Total Protein 6.3 g/dL (6.4-8.2) Albumin 2.8 g/dL (3.4-5.0) Albumin/Globulin Ratio 0.8 (1.0-1.7) Medications Active Scripts Medications Dose Route/Sig Max Daily Dose Days Date Category Oxymorphone Hcl 7.5 Mg Tab.er.12h 7.5 Mg PO BID 09/09/21 Reported Amlodipine Besylate 10 Mg Tablet 10 Mg PO DAILY 09/09/21 Reported Terazosin Hcl 5 Mg Capsule 5 Mg PO HS 09/09/21 Reported Paxil (Paroxetine Hcl) 30 Mg Tablet 60 Mg PO DAILY 09/09/21 Reported Impression . IMPRESSION: 1. Acute hypoxemic hypercarbic respiratory failure secondary to acute congestive heart failure, systolic versus diastolic; pneumonia, doubt thromboembolic disease. Her INR is 3.7. 2. Abnormal chest x-ray. 3. Acute congestive heart failure. 4. Pneumonia. 5. Obesity, suspect obstructive sleep apnea-hypopnea syndrome and obesity hypoventilation syndrome. 6. Encephalopathy, multifactorial. 7. Acute kidney injury. 8. Hyperkalemia. 9. Atrial fibrillation, on anticoagulation. Plan . PLAN AND RECOMMENDATIONS: 1. Titrate FiO2 to keep O2 saturation 90%, not higher. She is hypercarbic. 2. chest x-ray reviewed, it showed bilateral infiltrates. 3. Lasix was given. Keep intake less than output. Monitor creatinine and potassium. 4. Rocephin and doxycycline. 5. Elevate head of bed. 6. fu inr 7. Protonix for stress ulcer prophylaxis. 8. bronchodilator Atrovent only. She has atrial fibrillation. Avoid albuterol. 9. bipap setting reviewed, prn during day cont at night she would need psg as outpt The findings and recommendations were discussed with STACEY PRESTON MD Sep 11, 2021 07:30
[2021-09-11] MEDS: IPRATROPIUM BROMIDE 0.5 MG/2.5 ML NEBU. NEB SCH ×4 (07:36→20:49)
[2021-09-11 07:47] VITALS: BP 143/67
[2021-09-11] MEDS: PARoxetine 20 MG TABLET PO SCH (08:45)
[2021-09-11] MEDS: PANTOPRAZOLE IV PUSH 40 MG VIAL. IVP SCH (08:45)
[2021-09-11] MEDS: DOXYCYCLINE HYCLATE 100 MG in IV DEXTROSE 5% 100ML 100 ML IV SCH ×2 (08:46→22:11)
[2021-09-11] MEDS: PATCH REMOVAL. MC SCH (08:48)
--- NOTE | 2021-09-11 09:34 | PDOC ---
PROGRESS NOTES Date of Service: DATE: 09/11/21 TIME: 09:34 Subjective Subjective Feeling better today with improvement in dyspnea Objective Objective Vital Signs Date Time Temp Pulse Resp B/P (MAP) Pulse Ox O2 Delivery O2 Flow Rate FiO2 09/11/21 08:45 97 143/67 09/11/21 07:47 98.2 19 94 Nasal Cannula 3.0 98.2 Intake and Output 09/11/21 06:59 Intake Total 1680 ml Output Total 1750 ml Balance -70 ml Intake Oral 1180 ml IV Total 500 ml Output Urine Total 1750 ml Physical Exam Abdomen: Soft Heart: Other (Heart rate irregular) Extremities: Other (1-2+ pitting with chronic changes and discoloration suspicious for venous insufficiency) General: Alert, mild distress HEENT: Atraumatic Lungs: Other (Scattered crepitations bilaterally) Psych/Mental Status: Mood NL Assessment Assessment 1. Acute respiratory failure, multifactorial secondary to combination of acute on chronic diastolic heart failure, pneumonia, PHYLICIA/obesity hypoventilation. Pulmonary team following. 2. Acute on chronic diastolic heart failure. Continue gentle diuresis with close monitoring of BUN/creatinine. Check 2D echo to assess LV systolic function. 3. Atrial fibrillation, most probably permanent, rate relatively well controlled. Hold warfarin for supratherapeutic INR. 4. Acute on chronic renal insufficiency, hyperkalemia: Consult nephrology team. 5. Hypertension: Controlled Comment Review of Relevant I have reviewed the following items frank (where applicable) has been applied. Labs Laboratory Tests Test 09/10/21 11:54 09/11/21 03:30 Prothrombin Time 34.8 SEC (11.7-14.0) Prothromb Time International Ratio 3.6 (0.8-1.1) Sodium Level 140 mmol/L (136-145) 141 mmol/L (136-145) Potassium Level 4.4 mmol/L (3.5-5.1) 4.2 mmol/L (3.5-5.1) Chloride Level 102 mmol/L (98-107) 104 mmol/L (98-107) Carbon Dioxide Level 35 mmol/L (21-32) 36 mmol/L (21-32) Anion Gap 3 (6-14) 1 (6-14) Blood Urea Nitrogen 45 mg/dL (7-20) 37 mg/dL (7-20) Creatinine 1.7 mg/dL (0.6-1.0) 1.4 mg/dL (0.6-1.0) Estimated GFR (Cockcroft-Gault) 29.4 36.8 Glucose Level 128 mg/dL (70-99) 95 mg/dL (70-99) Calcium Level 8.2 mg/dL (8.5-10.1) 8.1 mg/dL (8.5-10.1) White Blood Count 3.8 x10^3/uL (4.0-11.0) Red Blood Count 4.54 x10^6/uL (3.50-5.40) Hemoglobin 13.7 g/dL (12.0-15.5) Hematocrit 42.1 % (36.0-47.0) Mean Corpuscular Volume 93 fL (79-100) Mean Corpuscular Hemoglobin 30 pg (25-35) Mean Corpuscular Hemoglobin Concent 33 g/dL (31-37) Red Cell Distribution Width 15.9 % (11.5-14.5) Platelet Count 111 x10^3/uL (140-400) Neutrophils (%) (Auto) 82 % (31-73) Lymphocytes (%) (Auto) 10 % (24-48) Monocytes (%) (Auto) 8 % (0-9) Eosinophils (%) (Auto) 0 % (0-3) Basophils (%) (Auto) 0 % (0-3) Neutrophils # (Auto) 3.1 x10^3/uL (1.8-7.7) Lymphocytes # (Auto) 0.4 x10^3/uL (1.0-4.8) Monocytes # (Auto) 0.3 x10^3/uL (0.0-1.1) Eosinophils # (Auto) 0.0 x10^3/uL (0.0-0.7) Basophils # (Auto) 0.0 x10^3/uL (0.0-0.2) BUN/Creatinine Ratio 26 (6-20) Total Bilirubin 0.8 mg/dL (0.2-1.0) Aspartate Amino Transf (AST/SGOT) 20 U/L (15-37) Alanine Aminotransferase (ALT/SGPT) 27 U/L (14-59) Alkaline Phosphatase 81 U/L (46-116) Ammonia 13 mcmol/L (11-34) Total Protein 6.3 g/dL (6.4-8.2) Albumin 2.8 g/dL (3.4-5.0) Albumin/Globulin Ratio 0.8 (1.0-1.7) Medications Current Medications Acetaminophen (Tylenol) 1,000 mg PRN Q6HRS PRN PO MILD PAIN 1-3 Last administered on 09/10/21at 22:30; Start 09/10/21 at 22:15 Lidocaine (Lidoderm) 1 patch QHS TD Last administered on 09/10/21at 22:31; Start 09/10/21 at 23:00 Linezolid/Dextrose 300 ml @ 300 mls/hr Q12HR IV Last administered on 09/11/21at 08:48; Start 09/10/21 at 16:00 Miscellaneous (Lidoderm Patch Removal) 1 ea DAILY MC Last administered on 09/11/21at 08:48; Start 09/11/21 at 09:00 Vitals/I & O Vital Sign - Last 24 Hours 09/10/21 09/10/21 09/10/21 09/10/21 10:43 11:57 15:12 15:36 Temp 98.0 98.1 98.0 98.1 Pulse 100 112 Resp 16 16 B/P (MAP) 96/56 (69) 104/76 (85) Pulse Ox 91 94 96 O2 Delivery Nasal Cannula Nasal Cannula BiPAP/CPAP Nasal Cannula O2 Flow Rate 3.0 2.0 09/10/21 09/10/21 09/10/21 09/10/21 19:25 20:00 20:07 21:02 Temp 98.2 98.2 Pulse 118 118 Resp 26 B/P (MAP) 149/72 (97) 149/72 Pulse Ox 92 O2 Delivery Nasal Cannula Nasal Cannula Nasal Cannula O2 Flow Rate 2.0 2.0 2.0 09/10/21 09/10/21 09/11/21 09/11/21 23:30 23:38 01:50 03:40 Temp 98.1 98.1 Pulse 98 82 Resp 22 22 B/P (MAP) 111/71 (84) 127/82 (97) Pulse Ox 96 92 97 97 O2 Delivery BiPAP/CPAP Nasal Cannula BiPAP/CPAP BiPAP/CPAP O2 Flow Rate 3.0 09/11/21 09/11/21 09/11/21 09/11/21 04:00 05:42 07:35 07:47 Temp 98.2 98.2 Pulse 97 Resp 19 B/P (MAP) 143/67 (92) Pulse Ox 97 97 92 94 O2 Delivery BiPAP/CPAP BiPAP/CPAP BiPAP/CPAP Nasal Cannula O2 Flow Rate 3.0 09/11/21 08:45 Pulse 97 B/P (MAP) 143/67 Intake and Output 09/10/21 09/10/21 09/11/21 14:59 22:59 06:59 Intake Total 460 ml 860 ml 360 ml Output Total 1100 ml 650 ml Balance 460 ml -240 ml -290 ml EDWIN EAST MD Sep 11, 2021 09:34
--- NOTE | 2021-09-11 10:37 | PN ---
DATE: 09/11/2021 SUBJECTIVE: The patient is resting, slightly propped up in bed, in no apparent respiratory distress. On questioning her, she denied any complaint. The nursing staff did not voice any concern, stated she has uneventful night. PHYSICAL EXAMINATION: GENERAL: When I examined her, she looked well and was clearly in no apparent respiratory distress. No pallor, jaundice, cyanosis or thyromegaly. No jugular venous distention, but mild bilateral lower extremity edema. VITAL SIGNS: Her heart rate was 97, blood pressure was 143/67, temperature was 98.2, respiratory rate was 19, and oxygen saturation was 94% on 3 liters of oxygen. HEAD, EYES, EARS, NOSE AND THROAT: Normocephalic, atraumatic. NECK: Supple. HEART: Showed normal first and second heart sounds. No gallop, rub or murmur. CHEST: Clear to auscultation. No crepitation or rhonchi. ABDOMEN: Distended, soft, nontender. NEUROLOGIC: She was grossly intact. Her intake over the last 24 hours was incompletely recorded, output was 1100. LABORATORY DATA: Her white cell count this morning was 3800, hemoglobin 14, hematocrit 42, MCV 93, and platelet count of 111. Her chemistry showed a serum sodium 141, potassium 4.2, chloride 104, bicarbonate 35, anion gap of 1, BUN 37, creatinine 1.4, estimated GFR was 36 mL per minute, her glucose 95, calcium was 8.1. Total bilirubin, AST, ALT, alkaline phosphatase were normal. Her ammonia was only 13. Total protein was 6.3, albumin was 2.8. Her prothrombin time was 34.8, INR of 3.6. As of yesterday, her blood gases showed a pH of 7.33, pCO2 of 59, pO2 of 72, bicarbonate 30 and oxygen saturation was 94% on 3 liters of oxygen. ASSESSMENT: 1. Acute hypoxic hypercapnic respiratory failure, likely multifactorial. 2. Narcotic dependence. 3. Morbid obesity and possible obstructive sleep apnea. 4. Hypertension. 5. Acute on chronic kidney injury. PLAN: Continue with her current medication. We will await the evaluation by the business analyst sales operations tomorrow and see whether she is a candidate for perhaps CPAP or BiPAP machine at home and to see whether the blood gas is enough to qualify her. She has atrial fibrillation, rate controlled on anticoagulation; however, her prothrombin time, INR is supratherapeutic. I will repeat her labs again today and tomorrow and hopefully discharge her home with home health and possibly BiPAP or CPAP machine. JOB DR: Rigo TID: [id number]
[2021-09-11 11:40] VITALS: BP 143/67
[2021-09-11 11:56] LABS: PROTHROMBIN TIME PATIENT 24.1 SEC (11.7-14.0)
[2021-09-11 14:10] VITALS: BP 123/66
[2021-09-11] MEDS ORDERED: WARF-31 PO (15:38)
[2021-09-11] MEDS ORDERED: WARF6TAB47 PO (15:38)
[2021-09-11] MEDS ORDERED: WARFARIN 3 MG TABLET. PO SCH (16:00)
[2021-09-11 19:35] VITALS: BP 131/83
[2021-09-11] MEDS: TERAZOSIN 5 MG CAPSULE. PO SCH (20:29)
[2021-09-11] MEDS: ACETAMINOPHEN 500 MG TABLET PO PRN (20:29)
[2021-09-11] MEDS: LIDOCAINE (700MG/PATCH) PATCH. TD SCH (20:30)
[2021-09-11 23:00] VITALS: BP 123/88
[2021-09-12 03:20] VITALS: BP 129/72
--- NOTE | 2021-09-12 04:02 | NUR ---
Placed BiPap on patient at HS. Patient takes BiPap off frequently. Wore BiPap from Midnight until 4am. Now insist on keeping BiPap off. Placed 2L NC on at this time. Resting in bed. Call light at hand. Bed alarm on.
[2021-09-12] MEDS: ACETAMINOPHEN 500 MG TABLET PO PRN ×2 (05:18→20:30)
[2021-09-12] MEDS: PANTOPRAZOLE IV PUSH 40 MG VIAL. IVP SCH (05:18)
[2021-09-12 07:00] VITALS: BP 137/95
[2021-09-12 07:04] LABS: CALCIUM 8.6 mg/dL (8.5-10.1); CREATININE 1.1 mg/dL (0.6-1.0); GFR 48.6; POTASSIUM 4.2 mmol/L (3.5-5.1)
[2021-09-12 07:08] LABS: PROTHROMBIN TIME PATIENT 20.2 SEC (11.7-14.0)
[2021-09-12] MEDS: IPRATROPIUM BROMIDE 0.5 MG/2.5 ML NEBU. NEB SCH ×4 (07:20→19:59)
--- NOTE | 2021-09-12 08:21 | PDOC ---
PULMONARY PROGRESS NOTES DATE: 09/12/21 TIME: 08:17 Subjective alert off bipap sob better not on home 02 Vitals Vital Signs Date Time Temp Pulse Resp B/P (MAP) Pulse Ox O2 Delivery O2 Flow Rate FiO2 09/12/21 07:23 94 Nasal Cannula 2.0 09/12/21 03:20 98.0 92 20 129/72 (91) 98.0 ROS: No Nausea General: Alert, No acute distress HEENT: Other (nc at perrl bipap mask) Lungs: Clear Cardiovascular: S1 Abdomen: Soft, Non-tender, Other (obese) Neuro Exam: Alert Extremities: Other (edema) Skin: Warm Labs Laboratory Tests Test 09/10/21 09:00 09/10/21 11:54 09/11/21 03:30 09/11/21 11:20 O2 Saturation 94 % (92-99) Arterial Blood pH 7.33 (7.35-7.45) Arterial Blood pCO2 at Patient Temp 59 mmHg (35-46) Arterial Blood pO2 at Patient Temp 72 mmHg (65-108) Arterial Blood HCO3 30 mmol/L (21-28) Arterial Blood Base Excess 3 mmol/L (-3-3) FiO2 3l n.c. Prothrombin Time 34.8 SEC (11.7-14.0) 24.1 SEC (11.7-14.0) Prothromb Time International Ratio 3.6 (0.8-1.1) 2.2 (0.8-1.1) Sodium Level 140 mmol/L (136-145) 141 mmol/L (136-145) Potassium Level 4.4 mmol/L (3.5-5.1) 4.2 mmol/L (3.5-5.1) Chloride Level 102 mmol/L (98-107) 104 mmol/L (98-107) Carbon Dioxide Level 35 mmol/L (21-32) 36 mmol/L (21-32) Anion Gap 3 (6-14) 1 (6-14) Blood Urea Nitrogen 45 mg/dL (7-20) 37 mg/dL (7-20) Creatinine 1.7 mg/dL (0.6-1.0) 1.4 mg/dL (0.6-1.0) Estimated GFR (Cockcroft-Gault) 29.4 36.8 Glucose Level 128 mg/dL (70-99) 95 mg/dL (70-99) Calcium Level 8.2 mg/dL (8.5-10.1) 8.1 mg/dL (8.5-10.1) White Blood Count 3.8 x10^3/uL (4.0-11.0) Red Blood Count 4.54 x10^6/uL (3.50-5.40) Hemoglobin 13.7 g/dL (12.0-15.5) Hematocrit 42.1 % (36.0-47.0) Mean Corpuscular Volume 93 fL (79-100) Mean Corpuscular Hemoglobin 30 pg (25-35) Mean Corpuscular Hemoglobin Concent 33 g/dL (31-37) Red Cell Distribution Width 15.9 % (11.5-14.5) Platelet Count 111 x10^3/uL (140-400) Neutrophils (%) (Auto) 82 % (31-73) Lymphocytes (%) (Auto) 10 % (24-48) Monocytes (%) (Auto) 8 % (0-9) Eosinophils (%) (Auto) 0 % (0-3) Basophils (%) (Auto) 0 % (0-3) Neutrophils # (Auto) 3.1 x10^3/uL (1.8-7.7) Lymphocytes # (Auto) 0.4 x10^3/uL (1.0-4.8) Monocytes # (Auto) 0.3 x10^3/uL (0.0-1.1) Eosinophils # (Auto) 0.0 x10^3/uL (0.0-0.7) Basophils # (Auto) 0.0 x10^3/uL (0.0-0.2) BUN/Creatinine Ratio 26 (6-20) Total Bilirubin 0.8 mg/dL (0.2-1.0) Aspartate Amino Transf (AST/SGOT) 20 U/L (15-37) Alanine Aminotransferase (ALT/SGPT) 27 U/L (14-59) Alkaline Phosphatase 81 U/L (46-116) Ammonia 13 mcmol/L (11-34) Total Protein 6.3 g/dL (6.4-8.2) Albumin 2.8 g/dL (3.4-5.0) Albumin/Globulin Ratio 0.8 (1.0-1.7) Test 09/12/21 04:30 Prothrombin Time 20.2 SEC (11.7-14.0) Prothromb Time International Ratio 1.8 (0.8-1.1) Sodium Level 140 mmol/L (136-145) Potassium Level 4.2 mmol/L (3.5-5.1) Chloride Level 103 mmol/L (98-107) Carbon Dioxide Level 34 mmol/L (21-32) Anion Gap 3 (6-14) Blood Urea Nitrogen 27 mg/dL (7-20) Creatinine 1.1 mg/dL (0.6-1.0) Estimated GFR (Cockcroft-Gault) 48.6 Glucose Level 95 mg/dL (70-99) Calcium Level 8.6 mg/dL (8.5-10.1) Laboratory Tests Test 09/11/21 11:20 09/12/21 04:30 Prothrombin Time 24.1 SEC (11.7-14.0) 20.2 SEC (11.7-14.0) Prothromb Time International Ratio 2.2 (0.8-1.1) 1.8 (0.8-1.1) Sodium Level 140 mmol/L (136-145) Potassium Level 4.2 mmol/L (3.5-5.1) Chloride Level 103 mmol/L (98-107) Carbon Dioxide Level 34 mmol/L (21-32) Anion Gap 3 (6-14) Blood Urea Nitrogen 27 mg/dL (7-20) Creatinine 1.1 mg/dL (0.6-1.0) Estimated GFR (Cockcroft-Gault) 48.6 Glucose Level 95 mg/dL (70-99) Calcium Level 8.6 mg/dL (8.5-10.1) Medications Active Scripts Medications Dose Route/Sig Max Daily Dose Days Date Category Oxymorphone Hcl 7.5 Mg Tab.er.12h 7.5 Mg PO BID 09/09/21 Reported Amlodipine Besylate 10 Mg Tablet 10 Mg PO DAILY 09/09/21 Reported Terazosin Hcl 5 Mg Capsule 5 Mg PO HS 09/09/21 Reported Paxil (Paroxetine Hcl) 30 Mg Tablet 60 Mg PO DAILY 09/09/21 Reported Impression . IMPRESSION: 1. Acute hypoxemic hypercarbic respiratory failure secondary to acute congestive heart failure, diastolic; doubt PNA or thromboembolic disease. Her INR is 3.7. 2. Abnormal chest x-ray. 3. Acute congestive heart failure. 4. Pneumonia. 5. Obesity, suspect obstructive sleep apnea-hypopnea syndrome and obesity hypoventilation syndrome. 6. Encephalopathy, multifactorial. 7. Acute kidney injury. 8. Hyperkalemia. 9. Atrial fibrillation, on anticoagulation. Plan . PLAN AND RECOMMENDATIONS: 1. Titrate FiO2 to keep O2 saturation 90%, not higher. She is hypercarbic. 2. chest x-ray reviewed, it showed bilateral infiltrates.repeat today 3. Lasix was given. Keep intake less than output. Monitor creatinine and potassium.improved 4. wean off abx 5. Elevate head of bed. 6. fu inr 7. Protonix for stress ulcer prophylaxis. 8. bronchodilator Atrovent only. She has atrial fibrillation. Avoid albuterol. 9. bipap setting reviewed, prn during day cont at night she would need psg as outpt The findings and recommendations were discussed with RN. likely dc home once review of cxr today TRU GRIMALDO MD Sep 12, 2021 08:21
[2021-09-12] MEDS: PARoxetine 20 MG TABLET PO SCH (08:48)
--- NOTE | 2021-09-12 08:48 | RAD ---
EXAM: AP View of the chest DATE: 09/12/2021 8:24 AM INDICATION: Reason: chf / Spl. Instructions: / History: COMPARISON: 09/10/2021 FINDINGS/ IMPRESSION: Cardiomediastinal silhouette is stable including tortuous/prominent aorta and upper mediastinum. Bila teral parenchymal airspace opacities are grossly unchanged. No pleural effusion. No pneumothorax. Electronically signed by: Trever Menchaca MD (09/12/2021 8:46 AM) [id number]
[2021-09-12] MEDS: DOXYCYCLINE HYCLATE 100 MG in IV DEXTROSE 5% 100ML 100 ML IV SCH ×2 (08:49→21:54)
[2021-09-12] MEDS: PATCH REMOVAL. MC SCH (09:00)
--- NOTE | 2021-09-12 10:37 | PDOC ---
PROGRESS NOTES Date of Service: DATE: 09/12/21 TIME: 10:37 Subjective Subjective Feeling better with improvement in dyspnea Objective Objective Vital Signs Date Time Temp Pulse Resp B/P (MAP) Pulse Ox O2 Delivery O2 Flow Rate FiO2 09/12/21 08:47 92 129/72 09/12/21 07:23 94 Nasal Cannula 2.0 09/12/21 07:00 97.4 20 97.4 Intake and Output0 09/12/21 07:00 Intake Total 1500 ml Output Total 1175 ml Balance 325 ml Intake Oral 700 ml IV Total 800 ml Output Urine Total 1175 ml # Bowel Movements 1 Physical Exam Abdomen: Soft Heart: Other (Heart rate irregular) Extremities: Other (1-2+ pitting with chronic changes and discoloration suspicious for venous insufficiency) General: Alert, mild distress HEENT: Atraumatic Lungs: Other (Scattered crepitations bilaterally) Psych/Mental Status: Mood NL Assessment Assessment 1. Acute respiratory failure, multifactorial secondary to combination of acute on chronic diastolic heart failure, pneumonia, PHYLICIA/obesity hypoventilation. Pulmonary team following. 2. Acute on chronic diastolic heart failure. Improved with diuresis. 2D echo showed normal LV systolic function with EF 50 to 55%. 3. Atrial fibrillation, most probably permanent, rate relatively well controlled. 4. Acute on chronic renal insufficiency: Per IM 5. Hypertension: Controlled Comment Review of Relevant I have reviewed the following items frank (where applicable) has been applied. Labs Laboratory Tests Test 09/11/21 11:20 09/12/21 04:30 Prothrombin Time 24.1 SEC (11.7-14.0) 20.2 SEC (11.7-14.0) Prothromb Time International Ratio 2.2 (0.8-1.1) 1.8 (0.8-1.1) Sodium Level 140 mmol/L (136-145) Potassium Level 4.2 mmol/L (3.5-5.1) Chloride Level 103 mmol/L (98-107) Carbon Dioxide Level 34 mmol/L (21-32) Anion Gap 3 (6-14) Blood Urea Nitrogen 27 mg/dL (7-20) Creatinine 1.1 mg/dL (0.6-1.0) Estimated GFR (Cockcroft-Gault) 48.6 Glucose Level 95 mg/dL (70-99) Calcium Level 8.6 mg/dL (8.5-10.1) Medications Current Medications Lactobacillus Rhamnosus (Culturelle) 1 cap BID PO ; Start 09/12/21 at 21:00 Pantoprazole Sodium (Protonix) 40 mg DAILYAC PO ; Start 09/13/21 at 07:30 Warfarin Sodium (Coumadin Per Physician) 1 each PRN DAILY PRN MC SEE COMMENTS Last administered on 09/12/21at 08:01; Start 09/11/21 at 16:00 Warfarin Sodium (Coumadin) 5 mg QMWF PO ; Start 09/12/21 at 16:00 Warfarin Sodium (Coumadin) 6 mg QTUTHSASU PO Last administered on 09/11/21at 16:20; Start 09/11/21 at 16:00 Vitals/I & O Vital Sign - Last 24 Hours 09/11/21 09/11/21 09/11/21 09/11/21 11:30 11:40 14:10 15:11 Temp 97.4 97.4 Pulse 88 113 Resp 19 B/P (MAP) 123/66 (85) Pulse Ox 94 91 O2 Delivery Nasal Cannula Nasal Cannula Nasal Cannula O2 Flow Rate 2.0 3.0 2.0 09/11/21 09/11/21 09/11/21 09/11/21 19:35 20:00 20:29 20:50 Temp 97.8 97.8 Pulse 107 107 Resp 22 B/P (MAP) 131/83 (99) 131/83 Pulse Ox 93 95 O2 Delivery Nasal Cannula Nasal Cannula Nasal Cannula O2 Flow Rate 2.0 2.0 2.0 09/11/21 09/12/21 09/12/21 09/12/21 23:00 00:31 02:15 03:20 Temp 97.7 98.0 97.7 98.0 Pulse 105 92 Resp 20 20 B/P (MAP) 123/88 (100) 129/72 (91) Pulse Ox 93 95 95 95 O2 Delivery Nasal Cannula BiPAP/CPAP BiPAP/CPAP BiPAP/CPAP O2 Flow Rate 2.0 09/12/21 09/12/21 09/12/21 09/12/21 04:35 07:00 07:23 08:47 Temp 97.4 97.4 Pulse 97 92 Resp 20 B/P (MAP) 137/95 (109) 129/72 Pulse Ox 94 93 94 O2 Delivery Nasal Cannula Nasal Cannula Nasal Cannula O2 Flow Rate 2.0 2.0 2.0 Intake and Output 09/11/21 09/11/21 09/12/21 15:00 23:00 07:00 Intake Total 1000 ml 300 ml 200 ml Output Total 550 ml 625 ml Balance 1000 ml -250 ml -425 ml EDWIN EAST MD Sep 12, 2021 10:37
[2021-09-12 11:00] VITALS: BP 148/94
--- NOTE | 2021-09-12 11:20 | NUR ---
SS following for discharge planning. SS reviewed pt chart and discussed with pt RN. Pt is from home with spouse and is currently requiring oxygen at two liters nasal canula. Pt has no home oxygen. Request for home BIPAP received. Clinical phoned and faxed to [facility], ; fax [phone]. Pt does qualify for BIPAP machine. [employer] preparing order. Six minute walk ordered to assess home oxygen needs. Pt on IV Zyvox and IV Doxycycline. PT/OT recommended home with assistance. SS will continue to follow for discharge planning. Addendum: 09/12/21 at 1220 by KARLI VILLANUEVA Pt agreeable to home healthcare at discharge with no preference of company. RT needed with Home Healthcare. Pt accepted on services with [facility], ; fax [phone]. Addendum: 09/12/21 at 1526 by KARLI VILLANUEVA Script for oxygen received. RT note and script for oxygen sent to [facility]. Oxygen and BIPAP approved. BIPAP to be delivered tomorrow.
[2021-09-12] MEDS: LIDOCAINE (700MG/PATCH) PATCH. TD SCH (11:48)
--- NOTE | 2021-09-12 12:40 | CARD ---
MR#: [id number] Date of Study: 09/12/2021 Ordering Physician: EDWIN EAST, Referring Physician: Terri STEWARD: Mirza Wolfe [facility] APPROVED REPORT EXAM: Two-dimensional and M-mode echocardiogram with Doppler and color Doppler. Other Information Quality : FairHR: 102bpm Rhythm : TachycardiaTechnically limited study due to body habitus. INDICATION Congestive Heart Failure 2D DIMENSIONS Left Atrium(2D)6.2 (1.6-4.0cm)IVSd1.4 (0.7-1.1cm) Aortic Root(2D)3.0 (2.0-3.7cm)LVDd4.7 (3.9-5.9cm) LVOT Diameter2.2 (1.8-2.4cm)PWd1.3 (0.7-1.1cm) LVDs3.2 (2.5-4.0cm)FS (%) 30.6 % SV58.6 ml Aortic Valve AoV Peak Jakob.157.3cm/sAoV VTI26.4cm AO Peak GR.9.9mmHgLVOT VTI 16.67cm AO Mean GR.5mmHg Mitral Valve MV E Kekowcro954.4cm/sMV E Peak Gr.4mmHg MV DECEL [id number] A Hwstmxfd78.9cm/s MV E Mean Gr.2mmHgE/A Ratio2.2 TDI Medial E' P. V14.22cm/sE/Medial E'7.3 Tricuspid Valve TR P. Vgvhuxfs760np/sTR Peak Gr.38mmHg LEFT VENTRICLE The Left Ventricle is borderline dilated. There is borderline to mild concentric left ventricular hyp ertrophy. The left ventricular systolic function is normal and the ejection fraction is within normal range. LV ejection fraction is 50 to 55%. There is normal LV segmental wall motion. No left ventricl e thrombus noted on this study. There is no ventricular septal defect visualized. There is no left ve ntricular aneurysm. There is no mass noted in the left ventricle. RIGHT VENTRICLE The right ventricle is mildly dilated. There is normal right ventricular wall thickness. Systolic fun ction is mildly reduced. ATRIA The left atrium is mild to moderately dilated. The right atrium is mildly dilated. The interatrial se ptum is intact with no evidence for an atrial septal defect or patent foramen ovale as noted on 2-D o r Doppler imaging. AORTIC VALVE The aortic valve is calcified but opens well. Doppler and Color Flow revealed no significant aortic r egurgitation. There is no significant aortic valvular stenosis. There is no aortic valvular vegetatio n. MITRAL VALVE The mitral valve is normal in structure and function. There is no evidence of mitral valve prolapse. There is no mitral valve stenosis. Doppler and Color Flow revealed trace to mild mitral valve regurgi tation. TRICUSPID VALVE The tricuspid valve is normal in structure and function. Doppler and Color Flow revealed mild tricusp id regurgitation. There is no tricuspid valve prolapse or vegetation. There is no tricuspid valve anderson nosis. PULMONIC VALVE The pulmonary valve is normal in structure and function. Doppler and Color Flow revealed no pulmonic valvular regurgitation. There is no pulmonic valvular stenosis. GREAT VESSELS The aortic root is normal in size. The ascending aorta is normal in size. The IVC is dilated at 3.1 c m PERICARDIAL EFFUSION There is no pleural effusion. There is no evidence of significant pericardial effusion. Critical Notification Critical Value: No <Conclusion> The left ventricle is normal size. The left ventricular systolic function is normal and the ejection fraction is within normal range. LV ejection fraction is 50 to 55%. There is borderline to mild concentric left ventricular hypertrophy. Doppler and Color Flow revealed no significant aortic regurgitation. There is no significant aortic valvular stenosis. Doppler and Color Flow revealed trace to mild mitral valve regurgitation. Doppler and Color Flow revealed mild tricuspid regurgitation. Signed by : José Antonio Dixon MD Electronically Approved : 09/12/2021 12:40:35
--- NOTE | 2021-09-12 14:21 | PN ---
DATE: 09/12/2021 SUBJECTIVE: The patient is resting, slightly propped up in bed, in no apparent respiratory distress. She is awake, alert. On questioning her, she denied any complaint. The nursing staff did not voice any concerns, stated she has an eventful night. PHYSICAL EXAMINATION: GENERAL: When I examined her, she looked well with no pallor, jaundice, cyanosis or thyromegaly. No jugular venous distention. Mild bilateral lower limb edema. VITAL SIGNS: Her heart rate was 92, blood pressure is 129/72, temperature 97.4, respiratory rate 20, and oxygen saturation was 94% on 2 liters of oxygen. HEAD, EYES, EARS, NOSE, AND THROAT: Normocephalic, atraumatic. NECK: Supple. HEART: Showed normal first and second heart sounds. No gallop, rub or murmur. CHEST: Clear to auscultation, no crepitation or rhonchi. ABDOMEN: Distended, soft, nontender. No guarding, no rigidity, no organomegaly. All hernial orifice intact. Bowel sounds normal. NEUROLOGIC: She is awake, alert. She moves extremities without difficulty. DIAGNOSTIC DATA: Her chest x-ray showed the cardiomediastinal silhouette is stable including tortuous prominent aorta and upper mediastinum, bilateral parenchymal airspace opacities are grossly unchanged. No pleural effusion or pneumothorax. LABORATORY DATA: Her lab work showed a white cell count 3800, hemoglobin 13, hematocrit 42, MCV 93, and a platelet count of 111,000. Her prothrombin time this morning was 20.2, INR 1.8. Her chemistry this morning showed a serum sodium 140, potassium 4.2, chloride 103, bicarbonate 34, anion gap of 3, BUN 27, creatinine 1.1. Estimated GFR was 48 mL. Glucose 95 and calcium was 8.6. ASSESSMENT: 1. Acute hypoxic hypercapnic respiratory failure, likely multifactorial including, A. Narcotic dependence. B. Morbid obesity and obstructive sleep apnea. 2. Hypertension. 3. Acute on chronic kidney injury, improving. PLAN: Obviously to continue with her current medication, continue with IV antibiotic and according to our transition social worker, the patient qualifies for BiPAP machine and will be discharged tomorrow home with home health. LACY/CELE DR: Rigo TID: [id number]
[2021-09-12 15:00] VITALS: BP 111/77
[2021-09-12] MEDS ORDERED: WARFARIN 5 MG TABLET. PO SCH (16:00)
[2021-09-12 19:00] VITALS: BP 147/89
[2021-09-12] MEDS: TERAZOSIN 5 MG CAPSULE. PO SCH (20:25)
[2021-09-12] MEDS: LACTOBACILLUS RHAMNOSUS GG 1 CAPSULE. PO SCH (20:25)
[2021-09-12 22:50] VITALS: BP 138/75
--- NOTE | 2021-09-13 02:52 | NUR ---
Refusing to wear BiPap.
[2021-09-13 03:00] VITALS: BP 127/72
[2021-09-13 06:39] LABS: PROTHROMBIN TIME PATIENT 21.6 SEC (11.7-14.0)
[2021-09-13 07:00] VITALS: BP 186/89
[2021-09-13] MEDS ORDERED: PANTOPRAZOLE 40 MG TABLET.DR. PO SCH (07:30)
[2021-09-13] MEDS: IPRATROPIUM BROMIDE 0.5 MG/2.5 ML NEBU. NEB SCH ×2 (07:57→11:35)
[2021-09-13] MEDS: PARoxetine 20 MG TABLET PO SCH (08:33)
[2021-09-13] MEDS: LACTOBACILLUS RHAMNOSUS GG 1 CAPSULE. PO SCH (08:33)
[2021-09-13] MEDS: PATCH REMOVAL. MC SCH (08:34)
[2021-09-13] MEDS: DOXYCYCLINE HYCLATE 100 MG in IV DEXTROSE 5% 100ML 100 ML IV SCH (08:35)
[2021-09-13] MEDS ORDERED: DOXY100C3 PO (10:10)
[2021-09-13] MEDS ORDERED: OXYM7.5T PO (10:10)
--- NOTE | 2021-09-13 10:15 | SNU/HH DC ---
DISCHARGE WITH HOME HEALTH DISCHARGE INFORMATION: Discharge Date: Sep 13, 2021 Final Diagnosis: Acute on chronic hypoxic hypercapnic respiratory failure Acute on chronic kidney injury Condition on Discharge: Stable CODE STATUS: Code Status: Full HOME HEALTH: Face to Face: I certify this patient is under my care and that I, or a nurse practitioner or physician's assistant director of public works working with me, had a face to face encounter that meets the physician face to face encounter requirements with this patient on [09/13/2021 Medical Complications: COPD Care Home For: Medication Management RN For Eval/Treatment: Yes Physical Therapy For: Evalulation/Treatment Occupational Therapy For: Evaluation/Treatment Pt Meets Homebound Status: Extreme weakness w/ amb. POST DISCHARGE ORDERS: Activity Instructions for Disc: Activity as tolerated DIET AFTER DISCHARGE: Cardiac CERTIFICATION STATEMENT: Certification Statement: Certification Statement: Based on the above finding, I certify that this patient is confined to the home and needs intermittent senior living care, physical therapy and/or speech therapy, or continues to need occupational therapy.~ This patient is under my care, and I have initiated the establishment of the plan of care.~ This patient will be followed by myself or a community physician who will periodically review the plan of care. Home Meds Active Scripts Oxymorphone Hcl (OXYMORPHONE HCL) 7.5 Mg Tab.er.12h, 1 TAB PO PRN BID PRN for pain MDD 2 Tablet(s) for 30 Days, #60 TAB 0 Refills Prov:WILIAN GUAN MD 09/13/21 Doxycycline Hyclate (DOXYCYCLINE HYCLATE) 100 Mg Capsule, 1 CAP PO BID for pn eumonia, #14 CAP Prov:WILIAN GUAN MD 09/13/21 Reported Medications Warfarin Sodium (WARFARIN SODIUM) 6 Mg Tablet, 6 MG PO QTUTHSASU for cardiac, #30 TAB 09/11/21 Warfarin Sodium (WARFARIN SODIUM) 5 Mg Tablet, 5 MG PO QMWF for cardiac, #30 TAB 09/11/21 Amlodipine Besylate (AMLODIPINE BESYLATE) 10 Mg Tablet, 10 MG PO DAILY for HTN, TAB 09/09/21 Terazosin Hcl (TERAZOSIN HCL) 5 Mg Capsule, 5 MG PO HS for HTN, RETENTION, CAP 09/09/21 Paroxetine Hcl (PAXIL) 30 Mg Tablet, 60 MG PO DAILY for DEPRESSION, TAB 09/09/21 Discontinued Reported Medications Oxymorphone Hcl (OXYMORPHONE HCL) 7.5 Mg Tab.er.12h, 7.5 MG PO BID for CHRONIC BACK PAIN, TAB.SR 09/09/21 WILIAN GUAN MD Sep 13, 2021 10:15
[2021-09-13 10:57] VITALS: BP 148/78
--- NOTE | 2021-09-13 11:13 | PDOC ---
PULMONARY PROGRESS NOTES DATE: 09/13/21 TIME: 11:10 Subjective alert off bipap sob better not on home 02 Vitals Vital Signs Date Time Temp Pulse Resp B/P (MAP) Pulse Ox O2 Delivery O2 Flow Rate FiO2 09/13/21 10:57 98.2 98 20 148/78 (101) 96 Nasal Cannula 2.0 98.2 ROS: No Nausea General: Alert, No acute distress HEENT: Other (nc at perrl bipap mask) Lungs: Clear Cardiovascular: S1 Abdomen: Soft, Non-tender, Other (obese) Neuro Exam: Alert Extremities: Other (edema) Skin: Warm Labs Laboratory Tests Test 09/11/21 11:20 09/12/21 04:30 09/13/21 03:50 Prothrombin Time 24.1 SEC (11.7-14.0) 20.2 SEC (11.7-14.0) 21.6 SEC (11.7-14.0) Prothromb Time International Ratio 2.2 (0.8-1.1) 1.8 (0.8-1.1) 1.9 (0.8-1.1) Sodium Level 140 mmol/L (136-145) Potassium Level 4.2 mmol/L (3.5-5.1) Chloride Level 103 mmol/L (98-107) Carbon Dioxide Level 34 mmol/L (21-32) Anion Gap 3 (6-14) Blood Urea Nitrogen 27 mg/dL (7-20) Creatinine 1.1 mg/dL (0.6-1.0) Estimated GFR (Cockcroft-Gault) 48.6 Glucose Level 95 mg/dL (70-99) Calcium Level 8.6 mg/dL (8.5-10.1) Laboratory Tests Test 09/13/21 03:50 Prothrombin Time 21.6 SEC (11.7-14.0) Prothromb Time International Ratio 1.9 (0.8-1.1) Medications Active Scripts Medications Dose Route/Sig Max Daily Dose Days Date Category Oxymorphone Hcl 7.5 Mg Tab.er.12h 7.5 Mg PO BID 09/09/21 Reported Amlodipine Besylate 10 Mg Tablet 10 Mg PO DAILY 09/09/21 Reported Terazosin Hcl 5 Mg Capsule 5 Mg PO HS 09/09/21 Reported Paxil (Paroxetine Hcl) 30 Mg Tablet 60 Mg PO DAILY 09/09/21 Reported Comments Chest x-ray reviewed 09/12/2021. There is improving CHF per my impression. Impression . IMPRESSION: 1. Acute hypoxemic hypercarbic respiratory failure secondary to acute congestive heart failure, diastolic; doubt PNA or thromboembolic disease. 2. Abnormal chest x-ray. 3. Acute congestive heart failure. 4. Pneumonia. 5. Obesity, suspect obstructive sleep apnea-hypopnea syndrome and obesity hypoventilation syndrome. 6. Encephalopathy, multifactorial. 7. Acute kidney injury. 8. Hyperkalemia. 9. Atrial fibrillation, on anticoagulation. Plan . PLAN AND RECOMMENDATIONS: 1. Titrate FiO2 to keep O2 saturation 90%, not higher. She is hypercarbic. 2. chest x-ray reviewed dated 09/12/2021. There is mild improvement in patient's CHF per my impression 3. Lasix was given. Keep intake less than output. Monitor creatinine and potassium.improved 4. wean off abx 5. Elevate head of bed. 6. fu inr 7. Protonix for stress ulcer prophylaxis. 8. bronchodilator Atrovent only. She has atrial fibrillation. Avoid albuterol. 9. bipap setting reviewed, prn during day cont at night she would need psg as outpt Stable pulmonary status for discharge home. TRU GRIMALDO MD Sep 13, 2021 11:13
[2021-09-13] MEDS ORDERED: DILT240C33 PO (12:05)
[2021-09-13] MEDS ORDERED: FURO-69 PO (12:09)
[2021-09-13] MEDS ORDERED: DIGOXIN IV 500 MCG/2 ML AMPUL. IV ONE (12:15)
--- NOTE | 2021-09-13 12:15 | PDOC ---
ARI BARAJAS BICYCLE REPAIR TECHNICIAN 09/13/21 1214: CARDIO Progress Notes Date and Time Date of Service 09/13/2021 Time of Evaluation 1140 Subjective Subjective: No Chest Pain, No shortness of breath, No Palpitations Vitals Vitals Vital Signs Date Time Temp Pulse Resp B/P (MAP) Pulse Ox O2 Delivery O2 Flow Rate FiO2 09/13/21 11:37 95 Nasal Cannula 2.0 09/13/21 10:57 98.2 98 20 148/78 (101) 98.2 Weight Weight [ ] Input and Output Intake and Output Intake and Output 09/13/21 07:00 Intake Total 1410 ml Output Total 1300 ml Balance 110 ml Intake Oral 1010 ml IV Total 400 ml Output Urine Total 1300 ml # Bowel Movements 1 Laboratory Labs Laboratory Tests Test 09/13/21 03:50 Prothrombin Time 21.6 SEC (11.7-14.0) Prothromb Time International Ratio 1.9 (0.8-1.1) Physical Exam HEENT: Neck Supple W Full Motion Chest: Symmetric LUNGS: Other (diminished, faint wheeze) Heart: irregularly irregular (AFIB) Abdomen: Soft N/T, Other (obese) Extremities: Other (2+ bilateral LE pitting edema) Neurology: alert, oriented, follow commands Assessment Assessment 1. Acute respiratory failure, multifactorial secondary to combination of acute on chronic diastolic heart failure, pneumonia, PHYLICIA/obesity hypoventilation. Pulmonary team following. 2. Acute on chronic diastolic heart failure. appears compensated 2D echo showed normal LV systolic function with EF 50 to 55%. Lasix therapy 3. Atrial fibrillation, most probably permanent, HR 120s Start on cardizem. x1 digoxin. DC norvasc HBPM. Continue warfarin for stroke prevention 4. Acute on chronic renal insufficiency: Per IM 5. Hypertension: lable episodes Justicifation of Admission Dx: Justifications for Admission: Justification of Admission Dx: Yes EDWIN EAST MD 09/13/21 1504: CARDIO Progress Notes Assessment Assessment Patient seen and examined. Agree with WIRE SPIRAL BINDER's assessment and plan. Acute on chronic diastolic heart failure better compensated Permanent atrial fibrillation rate controlled Continue warfarin for stroke prophylaxis ARI BARAJAS APRN Sep 13, 2021 12:14 EDWIN EAST MD Sep 13, 2021 15:04
[2021-09-13 12:20] VITALS: BP 148/78
[2021-09-13] MEDS ORDERED: FUROSEMIDE 20 MG TABLET PO SCH (13:00)
--- NOTE | 2021-09-13 14:27 | NUR ---
Discharge Note: CARLOTTA LINDER N [address] [facility] Discharge instructions and discharge home medications reviewed with Patient and a copy given. All questions have been answered and understanding verbalized. The following instructions and handouts were given: Diet, activity, medication list and follow up instructions provided to patient and patient's . Oxygen tank sent with patient, home health arranged with [facility]. Auguste catheter maintained and care instructions provided and patient and spouse educated on care. Discontinued lines and drains: Peripheral IV discontinued and catheter intact. Patient discharged to Home w/services with Ambulance Personnel via St[facility]cher
[2021-09-13] MEDS ORDERED: LINEZOLID 600 MG TABLET PO SCH (21:00)
[2021-09-13] MEDS ORDERED: DOXYCYCLINE HYCLATE 100 MG TABLET PO SCH (21:00)
== END 2021-09-13 14:10 | disposition home health service (06) | DRG 177 ==
LOC: 6 SOUTH 16:48
PROVIDERS: ADMIT Internal Medicine; ATTEND Internal Medicine
PROC: 5A09357 Assistance with Respiratory Ventilation, Less than 24 Consecutive Hours, Continuous Positive Airway Pressure (ICD-10-PCS; 2021-09-09)
PROC: 5A09357 Assistance with Respiratory Ventilation, Less than 24 Consecutive Hours, Continuous Positive Airway Pressure (ICD-10-PCS; 2021-09-10)
PROC: 5A09357 Assistance with Respiratory Ventilation, Less than 24 Consecutive Hours, Continuous Positive Airway Pressure (ICD-10-PCS; 2021-09-11)
PROC: 5A09357 Assistance with Respiratory Ventilation, Less than 24 Consecutive Hours, Continuous Positive Airway Pressure (ICD-10-PCS; 2021-09-12)
PROC: 5A09357 Assistance with Respiratory Ventilation, Less than 24 Consecutive Hours, Continuous Positive Airway Pressure (ICD-10-PCS; principal; 2021-09-13)
DX: J15.6 Pneumonia due to other Gram-negative bacteria (principal); J96.21 Acute and chronic respiratory failure with hypoxia; I50.43 Acute on chronic combined systolic (congestive) and diastolic (congestive) heart failure; J96.22 Acute and chronic respiratory failure with hypercapnia; N17.9 Acute kidney failure, unspecified; E66.2 Morbid (severe) obesity with alveolar hypoventilation; E87.2 Acidosis; F11.20 Opioid dependence, uncomplicated; G93.40 Encephalopathy, unspecified; I13.0 Hypertensive heart and chronic kidney disease with heart failure and stage 1 through stage 4 chronic kidney disease, or unspecified chronic kidney disease; I48.21 Permanent atrial fibrillation; Z68.43 Body mass index [BMI] 50.0-59.9, adult; D69.6 Thrombocytopenia, unspecified; E87.5 Hyperkalemia; M15.9 Polyosteoarthritis, unspecified; N18.9 Chronic kidney disease, unspecified; R79.1 Abnormal coagulation profile; Z79.01 Long term (current) use of anticoagulants; Z82.49 Family history of ischemic heart disease and other diseases of the circulatory system; Z98.41 Cataract extraction status, right eye; Z98.42 Cataract extraction status, left eye; J15.9 Unspecified bacterial pneumonia
CPT/HCPCS: 36415; 36600; 71045; 80048; 80053; 82140; 82805; 83880; 85007; 85025; 85610; 90471; 90686; 93306; 94640; 94660; 94760; C9113; J0696; J1160; J1940; J2020; J3490; J7060; 97530-GP; G0378; J7644

== ENCOUNTER 2021-10-28 16:02 | Inpatient (IN) | payer MEDICARE, BC ==
[~2021-10-28] VITALS: Ht 175.3 cm; Wt 163.1 kg
[2021-10-28 15:15] VITALS: BP 123/64
[~2021-10-28 16:02] MED LIST: AMLO-187 PO; DILT240C33 PO; DOXY100C3 PO; FURO-69 PO; OXYM7.5T PO; PARO30TA45 PO; TERA5CAP3 PO; WARF-31 PO; WARF6TAB47 PO
[2021-10-28 19:20] VITALS: BP 153/65
[2021-10-28] MEDS ORDERED: ACET500T68 PO (20:59)
[2021-10-28] MEDS ORDERED: ALBUTEROL SULFATE 2.5 MG/3 ML NEBU. INH PRN (21:00)
[2021-10-28] MEDS ORDERED: IPRATRPIUM/ALBUTEROL 0.5/2.5MG 3 ML NEBU. NEB PRN (21:00)
[2021-10-28] MEDS ORDERED: IPRA3AMP29 NEB (21:11)
[2021-10-28] MEDS ORDERED: BUDE0.5A IH (21:11)
[2021-10-28] MEDS ORDERED: AMMO226L TP (21:11)
[2021-10-28] MEDS ORDERED: MAGN24003 PO (21:11)
[2021-10-28] MEDS ORDERED: ALBU2.5V8 INH (21:11)
[2021-10-28] MEDS ORDERED: FURO-68 PO (21:11)
[2021-10-28] MEDS ORDERED: LOPE2TAB27 PO (21:11)
[2021-10-28] MEDS ORDERED: APIX5TAB PO (21:11)
[2021-10-28] MEDS: BUDESONIDE 0.5 MG/2 ML NEBU. NEB SCH (21:30)
[2021-10-28] MEDS ORDERED: LOPERAMIDE 2 MG CAPSULE PO PRN (21:30)
[2021-10-28] MEDS ORDERED: MAGNESIUM HYDROXIDE 2,400 MG/30 ML ORAL.SUSP. PO PRN (21:30)
[2021-10-28] MEDS: ACETAMINOPHEN 500 MG TABLET PO PRN (22:14)
[2021-10-28] MEDS: FUROSEMIDE 40 MG TABLET. PO SCH (22:15)
[2021-10-28] MEDS: APIXABAN 5 MG TABLET. PO SCH (22:15)
[2021-10-28] MEDS: AMMONIUM LACTATE 12% TOPICAL LOTION 225GM BOTTLE. TP SCH (22:15)
[2021-10-28 22:25] LABS: BASE EXCESS ABG 20 mmol/L (-3-3); HCO3 ABG 48 mmol/L (21-28); PO2 ABG 84 mmHg (65-108); SAT O2 ABG 96 % (92-99)
[2021-10-28 22:26] LABS: PCO2 ABG 75 mmHg (35-46)
[2021-10-28 22:27] LABS: FIO2 ABG 6L NC
[2021-10-28 23:15] VITALS: BP 120/77
[2021-10-29 03:20] VITALS: BP 135/79
[2021-10-29 06:18] VITALS: BP 154/84
[2021-10-29 06:40] LABS: BASO % 0 % (0-3); EOS % 0 % (0-3); HEMATOCRIT 37.6 % (36.0-47.0); LYMPH # 0.5 x10^3/uL (1.0-4.8); LYMPH % 21 % (24-48); MEAN CORPUSCULAR HEMOGLOBIN 30 pg (25-35); MEAN CORPUSCULAR HGB CONC 32 g/dL (31-37); MEAN CORPUSCULAR VOLUME 95 fL (79-100); MONO # 0.2 x10^3/uL (0.0-1.1); MONO % 9 % (0-9); NEUT # 1.6 x10^3/uL (1.8-7.7); NEUT % 70 % (31-73); PLATELET COUNT 99 x10^3/uL (140-400); RED BLOOD COUNT 3.97 x10^6/uL (3.50-5.40); WHITE BLOOD COUNT 2.3 x10^3/uL (4.0-11.0)
[2021-10-29 06:53] LABS: ALBUMIN 2.3 g/dL (3.4-5.0); ALBUMIN/GLOBULIN RATIO 0.7 (1.0-1.7); ALK PHOS 92 U/L (46-116); ALT (SGPT) 22 U/L (14-59); AST (SGOT) 24 U/L (15-37); BLOOD UREA NITROGEN 37 mg/dL (7-20); BUN/CREATININE RATIO 31 (6-20); CALCIUM 8.4 mg/dL (8.5-10.1); CARBON DIOXIDE 45 mmol/L (21-32); CHLORIDE 105 mmol/L (98-107); CREATININE 1.2 mg/dL (0.6-1.0); GFR 43.9; GLUCOSE 90 mg/dL (70-99); POTASSIUM 3.9 mmol/L (3.5-5.1); SODIUM 148 mmol/L (136-145); TOTAL BILIRUBIN 0.6 mg/dL (0.2-1.0); TOTAL PROTEIN 5.7 g/dL (6.4-8.2)
[2021-10-29] MEDS: BUDESONIDE 0.5 MG/2 ML NEBU. NEB SCH ×2 (07:32→18:06)
[2021-10-29] MEDS: FUROSEMIDE 40 MG TABLET. PO SCH ×2 (09:00→11:21)
[2021-10-29] MEDS: AMMONIUM LACTATE 12% TOPICAL LOTION 225GM BOTTLE. TP SCH ×2 (09:00→19:17)
[2021-10-29] MEDS: ACETAMINOPHEN 500 MG TABLET PO PRN ×2 (09:58→19:16)
--- NOTE | 2021-10-29 10:02 | NUR ---
per dr remedios braxton held for today d/t increased sodium
--- NOTE | 2021-10-29 10:45 | PN ---
DATE: 10/29/2021 SUBJECTIVE: The patient is resting, slightly propped up in bed, in no apparent distress. She is awake, alert. On questioning her, she denied any complaint, in particular, denied any chest pain, shortness of breath, cough, phlegm or hemoptysis. Denied any chills, rigors or fever. PHYSICAL EXAMINATION: GENERAL: When I examined her, she looked well. There is no pallor, jaundice, cyanosis or thyromegaly. No jugular venous distention. No lower limb edema. VITAL SIGNS: Her heart rate was 88, blood pressure was 154/84, temperature was 97.4, respiratory rate was 24 and oxygen saturation was 98% on 6 liters of oxygen. HEAD, EYES, EARS, NOSE, AND THROAT: Normocephalic, atraumatic. NECK: Supple. HEART: Showed normal first and second heart sounds, no gallop or murmur. CHEST: Shows central trachea, equal bilateral chest expansion, air entry, vesicular breath sounds. I could not appreciate any crepitation or rhonchi anteriorly. ABDOMEN: Distended, soft, nontender. NEUROLOGIC: She is awake, alert, responding appropriately. All cranial nerves intact. She moves her upper extremities to much good extent than lower extremities. She is mostly bedbound. She has an indwelling Auguste catheter. Her intake and output are incompletely recorded. LABORATORY DATA: As of this morning showed a white cell count of 2300, hemoglobin 12, hematocrit 37, MCV was 95 and platelet count of 99,000 with a manual differential showed 70% polymorphs, 21% lymphocytes, 9% monocytes. Her arterial blood gases when she arrived to the hospital last night showed a pH of 7.43, a pCO2 of 75, pO2 of 84, bicarbonate 48 and oxygen saturation was 96% on 6 liters by nasal cannula. Her chemistry this morning showed a serum sodium 148, potassium 3.9, chloride 105, bicarbonate 45, anion gap of 0, BUN 37, creatinine 1.2. Estimated GFR was 43 mL per minute. Her glucose was 90, calcium was 8.4. Total bilirubin, AST, ALT, alkaline phosphatase were normal. Total protein 5.7, albumin was 2.3. ASSESSMENT: 1. Acute on chronic hypercapnic respiratory failure, improved. 2. Acute on chronic diastolic congestive heart failure, seems to be compensated. 3. Morbid obesity. 4. Obstructive sleep apnea. 5. Obesity hypoventilation syndrome. 6. Persistent atrial fibrillation. 7. Hypertension. 8. Hypernatremia. 9. Leukopenia and thrombocytopenia. PLAN: My plan is to continue with oxygen supplementation and use BiPAP as needed. I will hold her furosemide as she seemed to be dehydrated and hypernatremic. Meanwhile, we will continue with apixaban for stroke prevention. She is normally on diltiazem to control the heart rate. I would consult the supervisor testing as well as the machine set up technician. SHAW DR: Rigo TID: [id number]
[2021-10-29 10:52] VITALS: BP 140/85
[2021-10-29] MEDS: APIXABAN 5 MG TABLET. PO SCH ×2 (11:32→19:17)
--- NOTE | 2021-10-29 11:49 | CONS ---
DATE OF CONSULTATION: 10/29/2021 PULMONARY CONSULTATION ATTENDING PHYSICIAN: Juan David Us MD. REASON FOR CONSULTATION: Respiratory failure. HISTORY OF PRESENT ILLNESS: The patient is a 76-year-old female with morbid obesity with a BMI of 50. She has underlying obesity hypoventilation syndrome and obstructive sleep apnea. She has chronic atrial fibrillation. She has leukopenia and thrombocytopenia. She was brought into the hospital with complaint of some shortness of breath. She states she has not been using her BiPAP, which was prescribed during her recent admission. She has no chest pain, no cough, no fever, no chills. She has been having increased lymphedema of her lower extremity recently. Chest x-ray was reviewed. There is right lower lobe pleural effusion. Consultation requested for further evaluation and management. Arterial blood gases were abnormal. With a pH of 7.43, pCO2 of 75 and a pO2 of 84 on 6 liters nasal cannula. The patient states she was recently prescribed oxygen. PAST MEDICAL HISTORY: Significant for morbid obesity with obesity hypoventilation syndrome. She is a nonsmoker. History of chronic atrial fibrillation, history of obstructive sleep apnea with noncompliance with BiPAP. History of hypertension. Lymphedema of lower extremity. PAST SURGICAL HISTORY: No recent surgeries. ALLERGIES: None. MEDICATIONS: Reviewed as listed in the MRAD including furosemide. REVIEW OF SYSTEMS: A 12-point review of system obtained. Pertinent positives discussed in my present illness, otherwise noncontributory. All systems that were negative were reviewed as well. FAMILY HISTORY: Noncontributory to lungs. SOCIAL HISTORY: Nonsmoker. PHYSICAL EXAMINATION: VITAL SIGNS: Reviewed. Pulse ox 96%, afebrile. NECK: Supple. LUNGS: With diminished breath sounds bilaterally. CARDIOVASCULAR: With a regular rate. ABDOMEN: Soft, markedly obese. EXTREMITIES: With chronic venous stasis lymphedema of the lower extremity. She has ecchymosis in the upper extremities. LABORATORY DATA: Reviewed. ABGs showed with a pH of 7.43, pCO2 of 75, pO2 of 84 on 6 liters. BUN 37, creatinine 1.2. Potassium 3.9. Albumin 2.3. White cell count 2.3, hemoglobin 12.0, platelets are 99. IMPRESSION: 1. The patient with obesity hypoventilation syndrome and chronic hypoxic respiratory failure. She has chronic hypercapnia, which is well compensated on the ABGs. She has not been compliant with her home BiPAP. 2. Morbid obesity. 3. Obesity hypoventilation syndrome. 4. Chronic lymphedema of the lower extremities with component of right heart failure. 5. Chronic anticoagulation secondary to atrial fibrillation. Currently on Eliquis. RECOMMENDATIONS: 1. Continue present BiPAP at nighttime. 2. Avoid hyperoxia. Reduce the oxygen flow during the day and keep saturation 90% and above. 3. Continue diuresis. 4. Bronchodilators. 5. Eliquis. 6. We will monitor chest x-ray. 7. Discussed with RN. We will follow along with you. JOSÉ ANTONIO DR: Cristiane TID: [id number]
--- NOTE | 2021-10-29 14:33 | PDOC ---
PROGRESS NOTES Date of Service: DATE: 10/29/21 TIME: 14:31 Subjective Subjective 76-year-old female was initially seen at [facility] ED for acute respiratory failure, thought to be multifactorial including acute on chronic diastolic heart failure and transferred to [facility] for further management. She stated that her dyspnea has improved. She denied any chest pain. Objective Objective Vital Signs Date Time Temp Pulse Resp B/P (MAP) Pulse Ox O2 Delivery O2 Flow Rate FiO2 10/29/21 11:32 81 140/85 10/29/21 10:52 97.5 30 96 BiPAP/CPAP 97.5 10/29/21 07:34 6.0 Intake and Output 10/29/21 07:00 Intake Total 410 ml Output Total 900 ml Balance -490 ml Intake Oral 410 ml Output Urine Total 900 ml # Bowel Movements 1 Physical Exam Abdomen: Soft, No tenderness Heart: Other (Heart rate irregular) Extremities: Other (Trace edema with chronic changes) General: Alert, Oriented X3 HEENT: Atraumatic Lungs: Other (Scattered crepitations bilaterally) Neck: Supple Neuro: Normal speech Psych/Mental Status: Mental status NL Assessment Assessment 1. Acute respiratory failure, multifactorial secondary to acute on chronic diastolic heart failure, obstructive sleep apnea and obesity hypoventilation. Recent 2D echo showed normal LV systolic function. Better compensated after diuresis with Lasix. 2. Permanent atrial fibrillation: Rate controlled. Continue diltiazem for rate control. Patient was previously on warfarin that was stopped by [facility] cardiology for uncertain reasons. We will obtain records and make recommendations after reviewing them. 3. Hypertension: Well-controlled. Continue current medical regimen. 4. Non-STEMI most of her type II/demand ischemia. Patient is presently chest pain-free. Troponin levels are trending down. Consider ischemic evaluation as an outpatient. 5. Morbid obesity, obesity hypoventilation, obstructive sleep apnea. Treat per primary team. Comment Review of Relevant I have reviewed the following items frank (where applicable) has been applied. Labs Laboratory Tests Test 10/28/21 21:15 10/29/21 06:25 O2 Saturation 96 % (92-99) Arterial Blood pH 7.43 (7.35-7.45) Arterial Blood pCO2 at Patient Temp 75 mmHg (35-46) Arterial Blood pO2 at Patient Temp 84 mmHg (65-108) Arterial Blood HCO3 48 mmol/L (21-28) Arterial Blood Base Excess 20 mmol/L (-3-3) FiO2 6l nc White Blood Count 2.3 x10^3/uL (4.0-11.0) Red Blood Count 3.97 x10^6/uL (3.50-5.40) Hemoglobin 12.0 g/dL (12.0-15.5) Hematocrit 37.6 % (36.0-47.0) Mean Corpuscular Volume 95 fL (79-100) Mean Corpuscular Hemoglobin 30 pg (25-35) Mean Corpuscular Hemoglobin Concent 32 g/dL (31-37) Red Cell Distribution Width 17.0 % (11.5-14.5) Platelet Count 99 x10^3/uL (140-400) Neutrophils (%) (Auto) 70 % (31-73) Lymphocytes (%) (Auto) 21 % (24-48) Monocytes (%) (Auto) 9 % (0-9) Eosinophils (%) (Auto) 0 % (0-3) Basophils (%) (Auto) 0 % (0-3) Neutrophils # (Auto) 1.6 x10^3/uL (1.8-7.7) Lymphocytes # (Auto) 0.5 x10^3/uL (1.0-4.8) Monocytes # (Auto) 0.2 x10^3/uL (0.0-1.1) Eosinophils # (Auto) 0.0 x10^3/uL (0.0-0.7) Basophils # (Auto) 0.0 x10^3/uL (0.0-0.2) Sodium Level 148 mmol/L (136-145) Potassium Level 3.9 mmol/L (3.5-5.1) Chloride Level 105 mmol/L (98-107) Carbon Dioxide Level 45 mmol/L (21-32) Anion Gap (6-14) Blood Urea Nitrogen 37 mg/dL (7-20) Creatinine 1.2 mg/dL (0.6-1.0) Estimated GFR (Cockcroft-Gault) 43.9 BUN/Creatinine Ratio 31 (6-20) Glucose Level 90 mg/dL (70-99) Calcium Level 8.4 mg/dL (8.5-10.1) Total Bilirubin 0.6 mg/dL (0.2-1.0) Aspartate Amino Transf (AST/SGOT) 24 U/L (15-37) Alanine Aminotransferase (ALT/SGPT) 22 U/L (14-59) Alkaline Phosphatase 92 U/L (46-116) Total Protein 5.7 g/dL (6.4-8.2) Albumin 2.3 g/dL (3.4-5.0) Albumin/Globulin Ratio 0.7 (1.0-1.7) Medications Current Medications Acetaminophen (Tylenol) 1,000 mg PRN Q6HRS PRN PO MILD PAIN / TEMP > 100.3'F Last administered on 10/29/21at 09:58; Start 10/28/21 at 21:00 Albuterol Sulfate (Ventolin Neb Soln) 3 mg PRN Q6HRS PRN INH SHORTNESS OF BREATH; Start 10/28/21 at 21:00 Albuterol/ Ipratropium (Duoneb) 3 ml PRN Q6HRS PRN NEB WHEEZING; Start 10/28/21 at 21:00; Status UNV Apixaban (Eliquis) 5 mg BID PO Last administered on 10/29/21at 11:32; Start 10/28/21 at 21:30 Budesonide (Pulmicort) 0.5 mg RTBID NEB Last administered on 10/29/21at 07:32; Start 10/28/21 at 21:30 Diltiazem HCl (Cardizem 24hr Cd) 180 mg DAILY PO Last administered on 10/29/21at 11:32; Start 10/29/21 at 10:40 Furosemide (Lasix) 40 mg BID92 PO Last administered on 10/28/21at 22:15; Start 10/28/21 at 21:30 Lactic Acid (Lac-Hydrin) 1 jacoby BID TP Last administered on 10/28/21at 22:15; Start 10/28/21 at 21:30 Loperamide HCl (Imodium) 2 mg PRN Q6HRS PRN PO DIARRHEA; Start 10/28/21 at 21:30 Magnesium Hydroxide (Milk Of Magnesia) 2,400 mg PRN DAILY PRN PO CONSTIPATION; Start 10/28/21 at 21:30 Vitals/I & O Vital Sign - Last 24 Hours 10/28/21 10/28/21 10/28/21 10/28/21 15:15 15:30 19:20 20:10 Temp 97.8 97.8 97.8 97.8 Pulse 82 92 Resp B/P (MAP) 123/64 (83) 153/65 (94) Pulse Ox 98 97 O2 Delivery Nasal Cannula Nasal Cannula Nasal Cannula Nasal Cannula O2 Flow Rate 6.0 6.0 5.5 6.0 10/28/21 10/29/21 10/29/21 10/29/21 23:15 02:19 03:20 04:00 Temp 97.7 97.4 97.7 97.4 Pulse 95 79 Resp B/P (MAP) 120/77 (91) 135/79 (97) Pulse Ox 96 98 98 98 O2 Delivery Nasal Cannula BiPAP/CPAP BiPAP/CPAP BiPAP/CPAP O2 Flow Rate 5.5 10/29/21 10/29/21 10/29/21 10/29/21 06:18 07:34 10:52 11:32 Temp 97.4 97.5 97.4 97.5 Pulse 88 81 81 Resp B/P (MAP) 154/84 (107) 140/85 (103) 140/85 Pulse Ox 97 98 96 O2 Delivery BiPAP/CPAP Nasal Cannula BiPAP/CPAP O2 Flow Rate 6.0 Intake and Output 10/28/21 10/28/21 10/29/21 15:00 23:00 07:00 Intake Total 310 ml 100 ml Output Total 400 ml 500 ml Balance -90 ml -400 ml EDWIN EAST MD Oct 29, 2021 14:33
[2021-10-29] MEDS ORDERED: FUROSEMIDE 40 MG/4 ML VIAL. IVP ONE ×2 (14:45→17:15)
[2021-10-29 15:00] VITALS: BP 127/76
--- NOTE | 2021-10-29 17:06 | PDOC ---
Provider Note Date of Service: DATE: 10/29/21 TIME: 17:05 Provider Note CXR from [facility] 10/27 reviewed. Persistent RLL effusion. EF 50%, Continue diuresis If no improvement, Ct chest and thoracentesis Justifications for Admission Other Justification TRU GRIMALDO MD Oct 29, 2021 17:06
--- NOTE | 2021-10-29 17:43 | NUR ---
DR GRIMALDO PUT IN LASIX ORDER, PAGED HIM TO LET HIM KNOW ABOUT DR GUAN HOLDING PO DOSES EARLIER. HE STATES HE WILL CALL DR GUAN AND CALL ME BACK. Addendum: 10/29/21 at 1838 by CHERRIE URBINA RN DR GRIMALDO CALLED BACK AND SAID TO HOLD LASIX FOR NOW
[2021-10-29 19:40] VITALS: BP 132/81
--- NOTE | 2021-10-29 20:54 | HP ---
DATE OF SERVICE: 10/29/2021 ADMIT DATE: 10/28/2021 HISTORY OF PRESENT ILLNESS: The patient is a 76-year-old female patient, a resident at [facility], who presented to the Emergency Room of [facility] on 10/27/2021 with increasing shortness of breath and respiratory distress. She reportedly has marked decreased mental status and shortness of breath. The patient has a history of morbid obesity, atrial fibrillation and chronic diastolic congestive heart failure. She also has morbid obesity and obstructive sleep apnea and chronic hypoxic respiratory failure. She was actually discharged from [facility] recently for [id number] diastolic congestive heart failure as well as acute on chronic hypoxic hypercapnic respiratory failure. She was extensively investigated in the Emergency Room and has had lab work, EKG and imaging studies. Her lab work on arrival showed a white cell count of 4500, her platelets were low at 105,000. Her chemistry showed a serum sodium of 151. Her beta natriuretic peptide was 2563 and troponin I high sensitivity was 110. Her blood gases showed a pH of 7.34, a pCO2 of 90, pO2 of 117, bicarbonate was 49 and oxygen saturation was 98% on FiO2 of 40%. Her prothrombin time, INR and APTT normal. D-dimer was 1.18. Urinalysis was essentially unremarkable and toxic screen was negative. Her influenza A and B were negative and coronavirus by PCR was negative. She has had a chest x-ray, which showed that the patient has a small to moderate right-sided pleural effusion. There is atelectasis or consolidation of the right base. No pneumothorax. There is lesser interstitial infiltrate bilaterally, the heart is not enlarged. The patient was basically put on BiPAP machine, was continued on all her medications, treated with Lovenox as well as furosemide, methylprednisone as well as diltiazem to control the heart rate and levofloxacin for possible healthcare-associated pneumonia. Unfortunately, the patient has remained in the Emergency Room of [facility] since admission and was transferred only yesterday evening. Her blood gases were repeated and as of yesterday afternoon her pH was 7.52, a pCO2 of 58, pO2 of 54 and bicarb was 48 and oxygen saturation was 91%. She was transferred to [facility] to continue with IV antibiotic, continue with BiPAP and oxygen supplementation, continue with steroids and to consult the er registrar as well as the deadener. PAST MEDICAL HISTORY: Significant for atrial fibrillation, chronic diastolic congestive heart failure, hypertension, morbid obesity, obstructive sleep apnea, obesity hypoventilation syndrome as well as hyperlipidemia. PAST SURGICAL HISTORY: Apparently unremarkable. FAMILY HISTORY: Noncontributory. SOCIAL HISTORY: She is and lives actually at [facility]. She does not smoke, drink alcohol or recreational drugs. ALLERGIES: She has no known drug allergies. MEDICATIONS: She was discharged to [facility] on albuterol sulfate for ProAir 2 puffs every 6 hours, ipratropium bromide and albuterol sulfate for Combivent 2 puffs every 6 hours, furosemide 40 mg twice a day, paroxetine for Paxil 20 mg daily, diltiazem 180 mg once a day, Wixela 250/50 one inhalation twice a day. Her Coumadin was discontinued as per recommendation of her deadener and was switched to apixaban 5 mg twice a day. PHYSICAL EXAMINATION: VITAL SIGNS: On arrival to the Emergency Room of [facility], her heart rate was 119, blood pressure 143/103, temperature was 97, respiratory rate was 36 and oxygen saturation was 99% on 15 liters by nonrebreather mask. HEAD, EYES, EARS, NOSE, AND THROAT: Normocephalic, atraumatic. NECK: Supple. HEART: Showed normal first and second heart sounds. No gallop, rub or murmur. CHEST: Clear to auscultation, no crepitation or rhonchi. ABDOMEN: Distended, soft, nontender. NEUROLOGIC: She was apparently lethargic; however, she does move all her extremities to noxious stimulation. PSYCHOLOGICAL: Affect, she was sedated. Her judgment and mood were depressed and impaired. IMAGING DATA: Had an EKG, which showed that she was in sinus tachycardia with a heart rate of 112 beats per minute with a left bundle branch block, abnormal EKG. Her chest x-ray showed that the patient has cardiomegaly with bilateral pleural effusion and increased cephalization consistent with heart failure; however, the radiologist's interpretation showed that the patient has right basilar consolidation or atelectasis, likely with a superimposed pleural effusion, interstitial infiltrates more diffusely are improved. LABORATORY DATA: On arrival to the Emergency Room showed a white cell count 4500, hemoglobin 14.6, hematocrit 46, MCV 98 and platelet count of 105,000 with a manual differential showed 88% polymorphs, 6% lymphocytes, 6% monocytes. Her arterial blood gases on arrival to the Emergency Room showed a pH of 7.34, a pCO2 of 90, pO2 of 117, bicarbonate was 49 and oxygen saturation was 98% on FiO2 of 40%. Her prothrombin time, INR and APTT were normal. D-dimer was high at 1.18. Her chemistry showed a serum sodium 151, potassium 4.4, chloride 103, bicarbonate 45, anion gap of 3, BUN 26, creatinine 1.2. Estimated GFR was 44 mL per minute. Her glucose 155, calcium was 8.9, magnesium was 2.4. Total bilirubin, AST, ALT, alkaline phosphatase are slightly elevated. Total CK was less than 15. Her troponin I high sensitivity was 110. Beta natriuretic peptide was 2563. Total protein was 6.4, albumin was 2.8, serum lipase was 85 and TSH was 1.699. Her urinalysis was mostly unremarkable. Toxic screen was negative and her serology was negative for coronavirus as well as influenza A and B. ASSESSMENT AND PLAN: The patient was basically accepted to be admitted to [facility]; however, no bed is available and the patient stayed more than 48 hours at [facility] Emergency Room with diagnosis of acute on chronic hypoxic hypercapnic respiratory failure, acute on chronic diastolic congestive heart failure, thrombocytopenia, hypernatremia and while there, she had also a PICC line placed successfully and once a bed became available, she was transferred to [facility] to consult the er registrar as well as the deadener. The patient is going in and out of the hospital multiple times and she claims that she has a BiPAP machine and I am not sure about that. If she does not, we will probably need to qualify her for BiPAP machine or Trilogy. KAREEM/CELE BUSTOS: Rigo TID: [id number]
[2021-10-29 23:00] VITALS: BP 140/75
[2021-10-30 03:05] VITALS: BP 140/75
[2021-10-30 06:43] LABS: BLOOD UREA NITROGEN 33 mg/dL (7-20); CALCIUM 8.3 mg/dL (8.5-10.1); CHLORIDE 107 mmol/L (98-107); CREATININE 1.1 mg/dL (0.6-1.0); GFR 48.6; GLUCOSE 88 mg/dL (70-99); POTASSIUM 3.8 mmol/L (3.5-5.1); SODIUM 151 mmol/L (136-145)
[2021-10-30 06:44] LABS: CARBON DIOXIDE > 45 mmol/L (21-32)
[2021-10-30] MEDS: BUDESONIDE 0.5 MG/2 ML NEBU. NEB SCH ×2 (07:24→18:10)
[2021-10-30 07:51] VITALS: BP 147/76
[2021-10-30] MEDS: APIXABAN 5 MG TABLET. PO SCH ×2 (08:56→20:49)
[2021-10-30] MEDS: ACETAMINOPHEN 500 MG TABLET PO PRN ×2 (08:56→20:49)
[2021-10-30] MEDS: FUROSEMIDE 40 MG TABLET. PO SCH ×2 (08:56→13:34)
[2021-10-30] MEDS: AMMONIUM LACTATE 12% TOPICAL LOTION 225GM BOTTLE. TP SCH ×2 (08:57→20:50)
--- NOTE | 2021-10-30 10:49 | PDOC ---
PULMONARY PROGRESS NOTES DATE: 10/30/21 TIME: 10:46 Subjective Patient denies any shortness of breath. Remains on nasal cannula. Vitals Vital Signs Date Time Temp Pulse Resp B/P (MAP) Pulse Ox O2 Delivery O2 Flow Rate FiO2 10/30/21 08:55 81 147/76 10/30/21 07:51 98.0 20 93 Nasal Cannula 4.0 98.0 General: Alert, No acute distress Lungs: Clear Cardiovascular: S1 Abdomen: Soft, Non-tender, Other (Markedly obese.) Extremities: Other (Lower extremity lymphedema.) Skin: Warm Labs Laboratory Tests Test 10/28/21 21:15 10/29/21 06:25 10/29/21 20:04 10/30/21 06:00 O2 Saturation 96 % (92-99) Arterial Blood pH 7.43 (7.35-7.45) Arterial Blood pCO2 at Patient Temp 75 mmHg (35-46) Arterial Blood pO2 at Patient Temp 84 mmHg (65-108) Arterial Blood HCO3 48 mmol/L (21-28) Arterial Blood Base Excess 20 mmol/L (-3-3) FiO2 6l nc White Blood Count 2.3 x10^3/uL (4.0-11.0) Red Blood Count 3.97 x10^6/uL (3.50-5.40) Hemoglobin 12.0 g/dL (12.0-15.5) Hematocrit 37.6 % (36.0-47.0) Mean Corpuscular Volume 95 fL (79-100) Mean Corpuscular Hemoglobin 30 pg (25-35) Mean Corpuscular Hemoglobin Concent 32 g/dL (31-37) Red Cell Distribution Width 17.0 % (11.5-14.5) Platelet Count 99 x10^3/uL (140-400) Neutrophils (%) (Auto) 70 % (31-73) Lymphocytes (%) (Auto) 21 % (24-48) Monocytes (%) (Auto) 9 % (0-9) Eosinophils (%) (Auto) 0 % (0-3) Basophils (%) (Auto) 0 % (0-3) Neutrophils # (Auto) 1.6 x10^3/uL (1.8-7.7) Lymphocytes # (Auto) 0.5 x10^3/uL (1.0-4.8) Monocytes # (Auto) 0.2 x10^3/uL (0.0-1.1) Eosinophils # (Auto) 0.0 x10^3/uL (0.0-0.7) Basophils # (Auto) 0.0 x10^3/uL (0.0-0.2) Sodium Level 148 mmol/L (136-145) 151 mmol/L (136-145) Potassium Level 3.9 mmol/L (3.5-5.1) 3.8 mmol/L (3.5-5.1) Chloride Level 105 mmol/L (98-107) 107 mmol/L (98-107) Carbon Dioxide Level 45 mmol/L (21-32) > 45 mmol/L (21-32) Anion Gap (6-14) (6-14) Blood Urea Nitrogen 37 mg/dL (7-20) 33 mg/dL (7-20) Creatinine 1.2 mg/dL (0.6-1.0) 1.1 mg/dL (0.6-1.0) Estimated GFR (Cockcroft-Gault) 43.9 48.6 BUN/Creatinine Ratio 31 (6-20) Glucose Level 90 mg/dL (70-99) 88 mg/dL (70-99) Calcium Level 8.4 mg/dL (8.5-10.1) 8.3 mg/dL (8.5-10.1) Total Bilirubin 0.6 mg/dL (0.2-1.0) Aspartate Amino Transf (AST/SGOT) 24 U/L (15-37) Alanine Aminotransferase (ALT/SGPT) 22 U/L (14-59) Alkaline Phosphatase 92 U/L (46-116) Total Protein 5.7 g/dL (6.4-8.2) Albumin 2.3 g/dL (3.4-5.0) Albumin/Globulin Ratio 0.7 (1.0-1.7) Glucose (Fingerstick) 114 mg/dL (70-99) Test 10/30/21 07:56 Glucose (Fingerstick) 125 mg/dL (70-99) Laboratory Tests Test 10/29/21 20:04 10/30/21 06:00 10/30/21 07:56 Glucose (Fingerstick) 114 mg/dL (70-99) 125 mg/dL (70-99) Sodium Level 151 mmol/L (136-145) Potassium Level 3.8 mmol/L (3.5-5.1) Chloride Level 107 mmol/L (98-107) Carbon Dioxide Level > 45 mmol/L (21-32) Anion Gap (6-14) Blood Urea Nitrogen 33 mg/dL (7-20) Creatinine 1.1 mg/dL (0.6-1.0) Estimated GFR (Cockcroft-Gault) 48.6 Glucose Level 88 mg/dL (70-99) Calcium Level 8.3 mg/dL (8.5-10.1) Medications Active Scripts Medications Dose Route/Sig Max Daily Dose Days Date Category Proair Hfa (Albuterol Sulfate) 8.5 Gm Hfa.aer.ad 2 Puff INH PRN Q6HRS PRN 10/28/21 Reported Milk Of Magnesia (Magnesium Hydroxide) 2,400 Mg/10 Ml Oral.susp 2,400 Mg PO PRN DAILY PRN 10/28/21 Reported Lasix (Furosemide) 40 Mg Tablet 40 Mg PO BID 10/28/21 Reported Duoneb 0.5-3(2.5) Mg/3 Ml (Albuterol/Ipratropium) 3 Ml Ampul.neb 3 Ml NEB PRN Q6HRS PRN 10/28/21 Reported Loperamide (Loperamide Hcl) 2 Mg Tablet 2 Mg PO PRN Q6HRS PRN 10/28/21 Reported Budesonide 0.5 Mg/2 Ml Ampul.neb 0.5 Mg IH PRN BID PRN 10/28/21 Reported Eliquis (Apixaban) 5 Mg Tablet 5 Mg PO BID 10/28/21 Reported Lac-Hydrin Five (Ammonium Lactate) 226 Gm Lotion 1 Zarina TP BID 30 10/28/21 Reported Acetaminophen 500 Mg Tablet 1,000 Mg PO PRN Q6HRS PRN 10/28/21 Reported Comments Chest x-ray reviewed. Mild to moderate in the right lower lobe effusion/atelectasis Impression . 1. The patient with obesity hypoventilation syndrome and chronic hypoxic respiratory failure. She has chronic hypercapnia, which is well compensated on the ABGs. She has not been compliant with her home BiPAP. 2. Morbid obesity. 3. Obesity hypoventilation syndrome. 4. Chronic lymphedema of the lower extremities with component of right heart failure. 5. Chronic anticoagulation secondary to atrial fibrillation. Currently on Eliquis. 6. Hyponatremia 7. Prerenal azotemia. Plan . 1. Continue present BiPAP at nighttime. 2. Avoid hyperoxia. Reduce the oxygen flow during the day and keep saturation 90% and above. 3. We will reduce the dose of diuretics due to increasing sodium and prerenal azotemia. 4. Bronchodilators. 5. She was taking Eliquis at home. Currently on hold. PCP to address that. 6. Will order CT chest to better assess right lower lobe effusion and need for any thoracentesis. At present patient is reluctant to undergo the procedure. 7. Discussed with RN. We will follow along with you. TRU GRIMALDO MD Oct 30, 2021 10:49
[2021-10-30 10:51] VITALS: BP 134/71
--- NOTE | 2021-10-30 13:31 | PDOC ---
PROGRESS NOTES Date of Service: DATE: 10/30/21 TIME: 13:29 Subjective Subjective Dyspnea improved, denied any chest pain Objective Objective Vital Signs Date Time Temp Pulse Resp B/P (MAP) Pulse Ox O2 Delivery O2 Flow Rate FiO2 10/30/21 11:07 98 BiPAP/CPAP 10/30/21 10:51 98.5 86 22 134/71 (92) 4.0 98.5 Intake and Output 10/30/21 07:00 Intake Total 840 ml Output Total 1100 ml Balance -260 ml Intake Oral 840 ml Output Urine Total 1100 ml # Voids 2 # Bowel Movements 2 Physical Exam Abdomen: Soft, No tenderness Heart: Other (Heart rate irregular) Extremities: Other (Trace edema with chronic changes) General: Alert, Oriented X3 HEENT: Atraumatic Lungs: Other (Scattered crepitations bilaterally) Neck: Supple Neuro: Normal speech Psych/Mental Status: Mental status NL Assessment Assessment 1. Acute respiratory failure, multifactorial secondary to acute on chronic diastolic heart failure, obstructive sleep apnea and obesity hypoventilation. Recent 2D echo showed normal LV systolic function. Better compensated after diuresis with Lasix. 2. Permanent atrial fibrillation: Rate controlled. Continue diltiazem for rate control. Patient was previously on warfarin that was stopped by [facility] cardiology for uncertain reasons. We will obtain records and make recommendations after reviewing them. 3. Hypertension: Well-controlled. Continue current medical regimen. 4. Non-STEMI most of her type II/demand ischemia. Patient is presently chest pain-free. Consider ischemic evaluation as an outpatient. 5. Morbid obesity, obesity hypoventilation, obstructive sleep apnea. Treat per primary team. 6. Pleural effusion: Pulmonary team planning CT scan of the chest to evaluate need for thoracentesis Comment Review of Relevant I have reviewed the following items frank (where applicable) has been applied. Labs Laboratory Tests Test 10/29/21 20:04 10/30/21 06:00 10/30/21 07:56 10/30/21 11:43 Glucose (Fingerstick) 114 mg/dL (70-99) 125 mg/dL (70-99) 94 mg/dL (70-99) Sodium Level 151 mmol/L (136-145) Potassium Level 3.8 mmol/L (3.5-5.1) Chloride Level 107 mmol/L (98-107) Carbon Dioxide Level > 45 mmol/L (21-32) Anion Gap (6-14) Blood Urea Nitrogen 33 mg/dL (7-20) Creatinine 1.1 mg/dL (0.6-1.0) Estimated GFR (Cockcroft-Gault) 48.6 Glucose Level 88 mg/dL (70-99) Calcium Level 8.3 mg/dL (8.5-10.1) Medications Current Medications Furosemide (Lasix) 40 mg 1X ONCE IVP ; Start 10/29/21 at 14:45; Stop 10/29/21 at 14:36; Status DC Furosemide (Lasix) 40 mg 1X ONCE IVP ; Start 10/29/21 at 17:15; Stop 10/29/21 at 17:16; Status DC Furosemide (Lasix) 40 mg AFTRNOON PO ; Start 10/30/21 at 13:00 Vitals/I & O Vital Sign - Last 24 Hours 10/29/21 10/29/21 10/29/21 10/29/21 15:00 18:06 19:40 20:00 Temp 97.7 97.5 97.7 97.5 Pulse 97 88 Resp B/P (MAP) 127/76 (93) 132/81 (98) Pulse Ox 94 94 100 O2 Delivery Nasal Cannula Nasal Cannula Nasal Cannula Nasal Cannula O2 Flow Rate 6.0 4.0 4.0 4.0 10/29/21 10/30/21 10/30/21 10/30/21 23:00 00:00 03:05 04:00 Temp 98.4 97.7 98.4 97.7 Pulse 85 77 Resp 20 B/P (MAP) 140/75 (96) 140/75 (96) Pulse Ox 94 95 97 92 O2 Delivery Nasal Cannula BiPAP/CPAP BiPAP/CPAP BiPAP/CPAP O2 Flow Rate 4.0 10/30/21 10/30/21 10/30/21 10/30/21 07:24 07:51 08:55 10:51 Temp 98.0 98.5 98.0 98.5 Pulse 81 81 86 Resp B/P (MAP) 147/76 (99) 147/76 134/71 (92) Pulse Ox 92 93 92 O2 Delivery Nasal Cannula Nasal Cannula Nasal Cannula O2 Flow Rate 4.0 4.0 4.0 10/30/21 11:07 Pulse Ox 98 O2 Delivery BiPAP/CPAP Intake and Output 10/29/21 10/29/21 10/30/21 15:00 23:00 07:00 Intake Total 240 ml 600 ml Output Total 350 ml 250 ml 500 ml Balance -110 ml 350 ml -500 ml EDWIN EAST MD Oct 30, 2021 13:30
--- NOTE | 2021-10-30 13:50 | PDOC ---
PROGRESS NOTES Date of Service: DATE: 10/30/21 TIME: 13:48 Subjective Subjective sleepy on BIPAP Objective Objective Vital Signs Date Time Temp Pulse Resp B/P (MAP) Pulse Ox O2 Delivery O2 Flow Rate FiO2 10/30/21 11:07 98 BiPAP/CPAP 10/30/21 10:51 98.5 86 22 134/71 (92) 4.0 98.5 Intake and Output 10/30/21 07:00 Intake Total 840 ml Output Total 1100 ml Balance -260 ml Intake Oral 840 ml Output Urine Total 1100 ml # Voids 2 # Bowel Movements 2 Physical Exam Abdomen: Soft, No tenderness Heart: Other (Heart rate irregular) Extremities: Other (Trace edema with chronic changes) General: Alert, Oriented X3 HEENT: Atraumatic Lungs: Other (Scattered crepitations bilaterally) Neck: Supple Neuro: Normal speech Psych/Mental Status: Mental status NL Skin: Other (lymphedema both legs) Assessment Assessment IMPRESSION: 1. The patient with obesity hypoventilation syndrome and chronic hypoxic respiratory failure. She has chronic hypercapnia, which is well compensated on the ABGs. She has not been compliant with her home BiPAP. 2. Morbid obesity. 3. Obesity hypoventilation syndrome. 4. Chronic lymphedema of the lower extremities with component of right heart failure. 5. Chronic anticoagulation secondary to atrial fibrillation. Currently on Eliquis. 6. Hypernatremia 7.mild Low platelets RECOMMENDATIONS: CT chest iv LAsix BIPAP Pulmonary+cardiology consult eliquis 1. Continue present BiPAP at nighttime. 2. Avoid hyperoxia. Reduce the oxygen flow during the day and keep saturation 90% and above. 3. Continue diuresis. 4. Bronchodilators. 5. Eliquis. 6. We will monitor chest x-ray. 7. Discussed with RN. We will follow along with you. Comment Review of Relevant I have reviewed the following items frank (where applicable) has been applied. Labs Laboratory Tests Test 10/29/21 20:04 10/30/21 06:00 10/30/21 07:56 10/30/21 11:43 Glucose (Fingerstick) 114 mg/dL (70-99) 125 mg/dL (70-99) 94 mg/dL (70-99) Sodium Level 151 mmol/L (136-145) Potassium Level 3.8 mmol/L (3.5-5.1) Chloride Level 107 mmol/L (98-107) Carbon Dioxide Level > 45 mmol/L (21-32) Anion Gap (6-14) Blood Urea Nitrogen 33 mg/dL (7-20) Creatinine 1.1 mg/dL (0.6-1.0) Estimated GFR (Cockcroft-Gault) 48.6 Glucose Level 88 mg/dL (70-99) Calcium Level 8.3 mg/dL (8.5-10.1) Medications Current Medications Furosemide (Lasix) 40 mg 1X ONCE IVP ; Start 10/29/21 at 14:45; Stop 10/29/21 at 14:36; Status DC Furosemide (Lasix) 40 mg 1X ONCE IVP ; Start 10/29/21 at 17:15; Stop 10/29/21 at 17:16; Status DC Furosemide (Lasix) 40 mg AFTRNOON PO Last administered on 10/30/21at 13:34; Start 10/30/21 at 13:00 Vitals/I & O Vital Sign - Last 24 Hours 10/29/21 10/29/21 10/29/21 10/29/21 15:00 18:06 19:40 20:00 Temp 97.7 97.5 97.7 97.5 Pulse 97 88 Resp 24 24 B/P (MAP) 127/76 (93) 132/81 (98) Pulse Ox 94 94 100 O2 Delivery Nasal Cannula Nasal Cannula Nasal Cannula Nasal Cannula O2 Flow Rate 6.0 4.0 4.0 4.0 10/29/21 10/30/21 10/30/21 10/30/21 23:00 00:00 03:05 04:00 Temp 98.4 97.7 98.4 97.7 Pulse 85 77 Resp 22 20 B/P (MAP) 140/75 (96) 140/75 (96) Pulse Ox 94 95 97 92 O2 Delivery Nasal Cannula BiPAP/CPAP BiPAP/CPAP BiPAP/CPAP O2 Flow Rate 4.0 10/30/21 10/30/21 10/30/21 10/30/21 07:24 07:51 08:55 10:51 Temp 98.0 98.5 98.0 98.5 Pulse 81 81 86 Resp 20 22 B/P (MAP) 147/76 (99) 147/76 134/71 (92) Pulse Ox 92 93 92 O2 Delivery Nasal Cannula Nasal Cannula Nasal Cannula O2 Flow Rate 4.0 4.0 4.0 10/30/21 11:07 Pulse Ox 98 O2 Delivery BiPAP/CPAP Intake and Output 10/29/21 10/29/21 10/30/21 15:00 23:00 07:00 Intake Total 240 ml 600 ml Output Total 350 ml 250 ml 500 ml Balance -110 ml 350 ml -500 ml Justifications for Admission Other Justification RAKEL OQUENDO MD Oct 30, 2021 13:50
[2021-10-30 14:15] VITALS: BP 112/66
--- NOTE | 2021-10-30 15:31 | RAD ---
XR CHEST 1V Clinical History: Reason: effusion 656 / Spl. Instructions: / History: Technique: AP view of the chest was obtained at 10/30/2021 8:39 AM. Comparison: September 12, 2021 Findings: There has been interval placement of a left PICC which has its tip well-positioned pressure downward in the low SVC. The heart is normal in size. Pulmonary vessels are top normal limits in size. There i s hazy opacity in the right lower lung and obscuration of the hemidiaphragm. There is a few perihilar linear opacities bilaterally. Impression: Small right effusion and bilateral infiltrates appear slightly worse. Electronically signed by: Mirza Dutton III, MD (10/30/2021 3:29 PM) [facility]
--- NOTE | 2021-10-30 17:32 | RAD ---
CT THORAX WO dated 10/30/2021 2:45 PM Indication:Reason: Right pleural effusion / Spl. Instructions: / History: Comparison: CT 10/16/2021 Technique: Helical noncontrast images were performed. One or more of the following individualized dose reduction techniques were utilized for this examinat ion: 1. Automated exposure control 2. Adjustment of the mA and/or kV according to patient size 3. Use of iterative reconstruction technique Findings: Bilateral pleural effusions are again seen, right larger than left. These appear similar to the prior exam. There is still some adjacent atelectasis. There is some respiratory motion artifacts. There is still evidence of some groundglass infiltrates in the upper lobes. These findings are also similar. No new consolidation is seen. The central airways show no apparent obstruction. No new enlarged lymph nodes are seen. Aortic caliber appears normal. Images through the upper abdomen again show a left adrenal mass. Right renal cyst is again demonstrat ed. There is a small left renal calculus. A small amount of ascites is again seen adjacent to the candy er. IMPRESSION: Stable appearance of pleural effusions. No significant new abnormality. Electronically signed by: José Antonio Connolly Jr., MD (10/30/2021 5:30 PM) [facility]
[2021-10-30 19:45] VITALS: BP 154/89
[2021-10-30 23:05] VITALS: BP 119/81
[2021-10-31] MEDS: ACETAMINOPHEN 500 MG TABLET PO PRN ×3 (03:07→20:49)
[2021-10-31 03:10] VITALS: BP 147/89
[2021-10-31] MEDS: BUDESONIDE 0.5 MG/2 ML NEBU. NEB SCH ×2 (06:06→20:35)
[2021-10-31 06:38] LABS: BASO % 0 % (0-3); EOS % 2 % (0-3); HEMATOCRIT 38.9 % (36.0-47.0); HEMOGLOBIN 12.3 g/dL (12.0-15.5); LYMPH # 0.5 x10^3/uL (1.0-4.8); LYMPH % 20 % (24-48); MEAN CORPUSCULAR HEMOGLOBIN 30 pg (25-35); MEAN CORPUSCULAR HGB CONC 32 g/dL (31-37); MEAN CORPUSCULAR VOLUME 95 fL (79-100); MONO # 0.2 x10^3/uL (0.0-1.1); MONO % 11 % (0-9); NEUT # 1.5 x10^3/uL (1.8-7.7); NEUT % 68 % (31-73); PLATELET COUNT 94 x10^3/uL (140-400); RED BLOOD COUNT 4.08 x10^6/uL (3.50-5.40); RED CELL DISTRIBUTION WIDTH 17.2 % (11.5-14.5); WHITE BLOOD COUNT 2.3 x10^3/uL (4.0-11.0)
[2021-10-31 06:46] LABS: BLOOD UREA NITROGEN 32 mg/dL (7-20); CALCIUM 8.1 mg/dL (8.5-10.1); CHLORIDE 107 mmol/L (98-107); CREATININE 1.1 mg/dL (0.6-1.0); GFR 48.6; GLUCOSE 100 mg/dL (70-99); POTASSIUM 3.6 mmol/L (3.5-5.1); SODIUM 150 mmol/L (136-145)
[2021-10-31 06:48] LABS: CARBON DIOXIDE > 45 mmol/L (21-32)
[2021-10-31 07:00] VITALS: BP 149/77
--- NOTE | 2021-10-31 08:30 | NUR ---
Wound/Ostomy Care Wound Type/Assessment: Patient seen per wound care consult. See wound assessment. Patient has skin tear to left lower arm. wound cleansed and assessed. Wound is minimal with some slough but appears to be healing. Patient's coccyx/buttocks is reddened but remains blanchable, ointment applied for protection, and patient encouraged to turn frequently. Treatment Recommendations/Plan: Recommendations for xeroform gauze to wound bed and cover with foam dressing. change on and Sunday or until healed. Education provided: Patient educated on wound therapy, POC, and PU prevention. Offloading surface/device: Patient repositioned to left side using wedge and bilateral heels floated. Recommended Referrals/Tests: N/A Discharge Recommendations for dressings: Dressing change instructions left in room. No other wounds noted. Bed lowered and call light in reach. Wound care will follow up on 11/08/21. Addendum: 10/31/[address] ARENAS RN Patient also has DTI's to left buttock and right posterior thigh, appears to be from catheter tubing. Wounds cleansed, assessed, measured, and pictured. Applied A&D ointment to these areas. They are minimal and will heal with no issues. Patient will continue to turn and to keep catheter tubing from underneath her legs.
[2021-10-31] MEDS: AMMONIUM LACTATE 12% TOPICAL LOTION 225GM BOTTLE. TP SCH ×2 (08:46→20:49)
[2021-10-31] MEDS: APIXABAN 5 MG TABLET. PO SCH ×2 (08:46→08:47)
--- NOTE | 2021-10-31 08:49 | NUR ---
MER RUBIO HELD THIS AM PER DR GRIMALDO FOR THORACENTESIS TOMORROW
--- NOTE | 2021-10-31 08:55 | PDOC ---
PULMONARY PROGRESS NOTES DATE: 10/31/21 TIME: 08:53 Subjective Patient denies any shortness of breath. Remains on nasal cannula. Vitals Vital Signs Date Time Temp Pulse Resp B/P (MAP) Pulse Ox O2 Delivery O2 Flow Rate FiO2 10/31/21 08:45 98 149/77 10/31/21 07:00 97.6 25 95 BiPAP/CPAP 97.6 10/31/21 06:07 3.0 General: Alert, No acute distress Lungs: Clear Cardiovascular: S1 Abdomen: Soft, Non-tender, Other (Markedly obese.) Extremities: Other (Lower extremity lymphedema.) Skin: Warm Labs Laboratory Tests Test 10/29/21 20:04 10/30/21 06:00 10/30/21 07:56 10/30/21 11:43 Glucose (Fingerstick) 114 mg/dL (70-99) 125 mg/dL (70-99) 94 mg/dL (70-99) Sodium Level 151 mmol/L (136-145) Potassium Level 3.8 mmol/L (3.5-5.1) Chloride Level 107 mmol/L (98-107) Carbon Dioxide Level > 45 mmol/L (21-32) Anion Gap (6-14) Blood Urea Nitrogen 33 mg/dL (7-20) Creatinine 1.1 mg/dL (0.6-1.0) Estimated GFR (Cockcroft-Gault) 48.6 Glucose Level 88 mg/dL (70-99) Calcium Level 8.3 mg/dL (8.5-10.1) Test 10/31/21 06:15 White Blood Count 2.3 x10^3/uL (4.0-11.0) Red Blood Count 4.08 x10^6/uL (3.50-5.40) Hemoglobin 12.3 g/dL (12.0-15.5) Hematocrit 38.9 % (36.0-47.0) Mean Corpuscular Volume 95 fL (79-100) Mean Corpuscular Hemoglobin 30 pg (25-35) Mean Corpuscular Hemoglobin Concent 32 g/dL (31-37) Red Cell Distribution Width 17.2 % (11.5-14.5) Platelet Count 94 x10^3/uL (140-400) Neutrophils (%) (Auto) 68 % (31-73) Lymphocytes (%) (Auto) 20 % (24-48) Monocytes (%) (Auto) 11 % (0-9) Eosinophils (%) (Auto) 2 % (0-3) Basophils (%) (Auto) 0 % (0-3) Neutrophils # (Auto) 1.5 x10^3/uL (1.8-7.7) Lymphocytes # (Auto) 0.5 x10^3/uL (1.0-4.8) Monocytes # (Auto) 0.2 x10^3/uL (0.0-1.1) Eosinophils # (Auto) 0.0 x10^3/uL (0.0-0.7) Basophils # (Auto) 0.0 x10^3/uL (0.0-0.2) Sodium Level 150 mmol/L (136-145) Potassium Level 3.6 mmol/L (3.5-5.1) Chloride Level 107 mmol/L (98-107) Carbon Dioxide Level > 45 mmol/L (21-32) Anion Gap (6-14) Blood Urea Nitrogen 32 mg/dL (7-20) Creatinine 1.1 mg/dL (0.6-1.0) Estimated GFR (Cockcroft-Gault) 48.6 Glucose Level 100 mg/dL (70-99) Calcium Level 8.1 mg/dL (8.5-10.1) Laboratory Tests Test 10/30/21 11:43 10/31/21 06:15 Glucose (Fingerstick) 94 mg/dL (70-99) White Blood Count 2.3 x10^3/uL (4.0-11.0) Red Blood Count 4.08 x10^6/uL (3.50-5.40) Hemoglobin 12.3 g/dL (12.0-15.5) Hematocrit 38.9 % (36.0-47.0) Mean Corpuscular Volume 95 fL (79-100) Mean Corpuscular Hemoglobin 30 pg (25-35) Mean Corpuscular Hemoglobin Concent 32 g/dL (31-37) Red Cell Distribution Width 17.2 % (11.5-14.5) Platelet Count 94 x10^3/uL (140-400) Neutrophils (%) (Auto) 68 % (31-73) Lymphocytes (%) (Auto) 20 % (24-48) Monocytes (%) (Auto) 11 % (0-9) Eosinophils (%) (Auto) 2 % (0-3) Basophils (%) (Auto) 0 % (0-3) Neutrophils # (Auto) 1.5 x10^3/uL (1.8-7.7) Lymphocytes # (Auto) 0.5 x10^3/uL (1.0-4.8) Monocytes # (Auto) 0.2 x10^3/uL (0.0-1.1) Eosinophils # (Auto) 0.0 x10^3/uL (0.0-0.7) Basophils # (Auto) 0.0 x10^3/uL (0.0-0.2) Sodium Level 150 mmol/L (136-145) Potassium Level 3.6 mmol/L (3.5-5.1) Chloride Level 107 mmol/L (98-107) Carbon Dioxide Level > 45 mmol/L (21-32) Anion Gap (6-14) Blood Urea Nitrogen 32 mg/dL (7-20) Creatinine 1.1 mg/dL (0.6-1.0) Estimated GFR (Cockcroft-Gault) 48.6 Glucose Level 100 mg/dL (70-99) Calcium Level 8.1 mg/dL (8.5-10.1) Medications Active Scripts Medications Dose Route/Sig Max Daily Dose Days Date Category Proair Hfa (Albuterol Sulfate) 8.5 Gm Hfa.aer.ad 2 Puff INH PRN Q6HRS PRN 10/28/21 Reported Milk Of Magnesia (Magnesium Hydroxide) 2,400 Mg/10 Ml Oral.susp 2,400 Mg PO PRN DAILY PRN 10/28/21 Reported Lasix (Furosemide) 40 Mg Tablet 40 Mg PO BID 10/28/21 Reported Duoneb 0.5-3(2.5) Mg/3 Ml (Albuterol/Ipratropium) 3 Ml Ampul.neb 3 Ml NEB PRN Q6HRS PRN 10/28/21 Reported Loperamide (Loperamide Hcl) 2 Mg Tablet 2 Mg PO PRN Q6HRS PRN 10/28/21 Reported Budesonide 0.5 Mg/2 Ml Ampul.neb 0.5 Mg IH PRN BID PRN 10/28/21 Reported Eliquis (Apixaban) 5 Mg Tablet 5 Mg PO BID 10/28/21 Reported Lac-Hydrin Five (Ammonium Lactate) 226 Gm Lotion 1 Zarina TP BID 30 10/28/21 Reported Acetaminophen 500 Mg Tablet 1,000 Mg PO PRN Q6HRS PRN 10/28/21 Reported Comments Chest x-ray reviewed. Mild to moderate in the right lower lobe effusion/atelectasis Impression . 1. The patient with obesity hypoventilation syndrome and chronic hypoxic respiratory failure. She has chronic hypercapnia, which is well compensated on the ABGs. She has not been compliant with her home BiPAP. 2. Morbid obesity. 3. Obesity hypoventilation syndrome. 4. Chronic lymphedema of the lower extremities with component of right heart failure. 5. Chronic anticoagulation secondary to atrial fibrillation. Currently on Eliquis. Also has remote history of DVT 30 years ago. 6. Hyponatremia 7. Prerenal azotemia. Plan . 1. Continue present BiPAP at nighttime. 2. Avoid hyperoxia. Reduce the oxygen flow during the day and keep saturation 90% and above. 3. Reduced the dose of diuretics 10/30/2021 due to increasing sodium and prerenal azotemia. 4. Bronchodilators. 5. She was taking Eliquis at home. 6. CT chest reviewed. Patient has persistent moderate right pleural effusion with associated atelectasis. She would benefit from thoracentesis. She is agreeable to proceed. Will hold Eliquis and order thoracentesis by IR for tomorrow 7. Discussed with RN. We will follow along with you. TRU GRIMALDO MD Oct 31, 2021 08:55
[2021-10-31 10:12] VITALS: BP 145/63
--- NOTE | 2021-10-31 10:59 | PN ---
DATE: 10/31/2021 SUBJECTIVE: The patient is resting, slightly propped up in bed, in no apparent respiratory distress. She is awake, alert. On questioning her, denied any complaint. Nursing staff did not voice any concerns that she had an eventful night. PHYSICAL EXAMINATION: GENERAL: When I examined her, there was no pallor, jaundice, cyanosis. No lymphadenopathy, no thyromegaly, no jugular venous distention. No lower limb edema. VITAL SIGNS: Her heart rate was 85, blood pressure was 145/63, temperature was 98, respiratory rate 25, and oxygen saturation was 94% on 3 liters of oxygen by nasal cannula during daytime and she is on BiPAP at nighttime. HEAD, EYES, EARS, NOSE, AND THROAT: Normocephalic, atraumatic. NECK: Supple. HEART: Normal first and second heart sounds. No gallop, rub or murmur. CHEST: Clear to auscultation, no crepitation or rhonchi. ABDOMEN: Distended, soft, nontender. NEUROLOGIC: She is awake, alert, responding appropriately. Cranial nerves intact. She moves upper extremities to much good extent than lower extremities. She is mostly bedbound. Her intake was 840, output was 1100. LABORATORY DATA: As of this morning showed a white cell count 2300, hemoglobin 12.3, hematocrit 39, MCV 95 and platelet count of 94,000. Serum sodium was 150, potassium 3.6, chloride 107, bicarbonate 45, anion gap of 0, BUN 31, creatinine 1.1. Estimated GFR was 48 mL per minute. Her glucose 100 and calcium was 8.1. Her arterial blood gases showed pH of 7.43, pCO2 of 75, pO2 of 84, bicarbonate 48 and oxygen saturation was 96% on 6 liters by nasal cannula. ASSESSMENT: 1. Acute on chronic hypoxic hypercapnic respiratory failure, improved. 2. Acute on chronic diastolic congestive heart failure, seems to be compensated. 3. Morbid obesity. 4. Obstructive sleep apnea. 5. Obesity hypoventilation syndrome. 6. Persistent atrial fibrillation, rate controlled, well anticoagulated. 7. Hypertension. 8. Hyperlipidemia. 9. Leukopenia and thrombocytopenia. 10. CT scan of the chest showed that the patient has bilateral pleural effusion, right larger than left. This appears similar to prior exam. There is still some adjacent atelectasis. There is some respiratory motion artifact. There is still evidence of some ground glass infiltrates in the upper lobes. These findings are also similar. No new consolidation is seen. The central airways showed no apparent obstruction. No new enlarged lymph nodes are seen. Aortic caliber appears normal. PLAN: Obviously to hold her apixaban as she is scheduled for thoracentesis tomorrow. Meanwhile, we will continue with BiPAP at nighttime. Continue with oxygen supplementation during daytime. Continue with diltiazem to control the heart rate and Lac-Hydrin for dry skin, budesonide and albuterol sulfate for bronchospasm. SHAW DR: Rigo TID: [id number]
[2021-10-31 11:18] LABS: PROTHROMBIN TIME PATIENT 14.2 SEC (11.7-14.0)
--- NOTE | 2021-10-31 11:43 | PDOC ---
DANIAL WREN [employer] 10/31/21 1143: CARDIO Progress Notes Date and Time Date of Service 10/31/21 Time of Evaluation 1140 Subjective Subjective: No Chest Pain, No Palpitations, Other (still some SOA) Vitals Vitals Vital Signs Date Time Temp Pulse Resp B/P (MAP) Pulse Ox O2 Delivery O2 Flow Rate FiO2 10/31/21 10:12 98.0 85 25 145/63 (90) 94 BiPAP/CPAP 98.0 10/31/21 08:30 3.0 Weight Weight [ ] Input and Output Intake and Output Intake and Output 10/31/21 07:00 Intake Total 960 ml Output Total 1250 ml Balance -290 ml Intake Oral 960 ml Output Urine Total 1250 ml # Bowel Movements 1 Laboratory Labs Laboratory Tests Test 10/30/21 11:43 10/31/21 06:15 10/31/21 10:10 Glucose (Fingerstick) 94 mg/dL (70-99) White Blood Count 2.3 x10^3/uL (4.0-11.0) Red Blood Count 4.08 x10^6/uL (3.50-5.40) Hemoglobin 12.3 g/dL (12.0-15.5) Hematocrit 38.9 % (36.0-47.0) Mean Corpuscular Volume 95 fL (79-100) Mean Corpuscular Hemoglobin 30 pg (25-35) Mean Corpuscular Hemoglobin Concent 32 g/dL (31-37) Red Cell Distribution Width 17.2 % (11.5-14.5) Platelet Count 94 x10^3/uL (140-400) Neutrophils (%) (Auto) 68 % (31-73) Lymphocytes (%) (Auto) 20 % (24-48) Monocytes (%) (Auto) 11 % (0-9) Eosinophils (%) (Auto) 2 % (0-3) Basophils (%) (Auto) 0 % (0-3) Neutrophils # (Auto) 1.5 x10^3/uL (1.8-7.7) Lymphocytes # (Auto) 0.5 x10^3/uL (1.0-4.8) Monocytes # (Auto) 0.2 x10^3/uL (0.0-1.1) Eosinophils # (Auto) 0.0 x10^3/uL (0.0-0.7) Basophils # (Auto) 0.0 x10^3/uL (0.0-0.2) Sodium Level 150 mmol/L (136-145) Potassium Level 3.6 mmol/L (3.5-5.1) Chloride Level 107 mmol/L (98-107) Carbon Dioxide Level > 45 mmol/L (21-32) Anion Gap (6-14) Blood Urea Nitrogen 32 mg/dL (7-20) Creatinine 1.1 mg/dL (0.6-1.0) Estimated GFR (Cockcroft-Gault) 48.6 Glucose Level 100 mg/dL (70-99) Calcium Level 8.1 mg/dL (8.5-10.1) Prothrombin Time 14.2 SEC (11.7-14.0) Prothromb Time International Ratio 1.1 (0.8-1.1) Physical Exam Chest: Symmetric LUNGS: Other (diminished bases) Heart: irregularly irregular (AFIB) Abdomen: Other (obese) Extremities: Other (chronic venous stasis changes, lower extremity lymphedema) Neurology: alert, oriented, follow commands Assessment Assessment 1. Acute respiratory failure; multifactorial secondary to a/c CHF, PHYLICIA, obesity hypoventilation, and pleural effusion. Thoracentesis planned. 2. Acute on chronic diastolic CHF; Recent 2D echo showed normal LV systolic function. Better compensated after diuresis with Lasix. 3. Permanent AFIB; rate controlled Rate controlled. Patient was previously on warfarin that was stopped by [facility] cardiology for uncertain reasons. 4. Hypertension; controlled 5. Mild troponin elevation; high sensitivity trop peak 113. Type II, demand ischemia. CP free. 6. Morbid obesity, obesity hypoventilation, obstructive sleep apnea. Treat per primary team. 7. Pleural effusion; plans for thoracentesis. Eliquis on hold. 8. Hypernatremia 9. Leukopenia Recommendations Oral Lasix Monitor Na Cardizem for rate control Eliquis of hold for thoracentesis Awaiting records from [facility] Consider ischemic evaluation as an outpatient. Justicifation of Admission Dx: Justifications for Admission: Justification of Admission Dx: Yes EDWIN EAST MD 10/31/21 1551: CARDIO Progress Notes Assessment Assessment Patient seen and examined. Agree with [employer]ER's assessment and plan. Permanent atrial fibrillation rate controlled. Acute on chronic diastolic heart failure better compensated. Pulmonary team planning thoracentesis. Eliquis on hold. Culture ischemic evaluation as outpatient. DANIAL WREN APRN Oct 31, 2021 11:43 EDWIN EAST MD Oct 31, 2021 15:51
[2021-10-31] MEDS: FUROSEMIDE 40 MG TABLET. PO SCH (12:18)
--- NOTE | 2021-10-31 14:46 | NUR ---
SS following for discharge planning. SS reviewed pt chart and discussed with pt RN. Pt is skilled rehabilitation resident from [facility], ; fax [phone], and is currently requiring oxygen at three liters nasal canula. Pt has home oxygen and home BIPAP. Cardiology and Pulmonology following. Thoracentesis tomorrow. SS will continue to follow for discharge planning.
[2021-10-31 15:00] VITALS: BP 127/80
[2021-10-31 19:20] VITALS: BP 117/78
[2021-10-31 23:15] VITALS: BP 138/62
[2021-11-01 03:45] VITALS: BP 123/82
[2021-11-01 05:06] LABS: BLOOD UREA NITROGEN 28 mg/dL (7-20); CARBON DIOXIDE > 45 mmol/L (21-32); CHLORIDE 109 mmol/L (98-107); CREATININE 0.9 mg/dL (0.6-1.0); GFR 61.2; GLUCOSE 88 mg/dL (70-99); POTASSIUM 3.6 mmol/L (3.5-5.1); SODIUM 151 mmol/L (136-145)
[2021-11-01] MEDS: ACETAMINOPHEN 500 MG TABLET PO PRN ×2 (06:36→20:43)
[2021-11-01 07:00] VITALS: BP 163/82
[2021-11-01] MEDS: BUDESONIDE 0.5 MG/2 ML NEBU. NEB SCH ×2 (07:44→20:07)
--- NOTE | 2021-11-01 08:28 | PDOC ---
PULMONARY PROGRESS NOTES DATE: 11/01/21 TIME: 08:28 Subjective Patient feels better status post thoracentesis normally on 4 L of oxygen at the rehab Vitals Vital Signs Date Time Temp Pulse Resp B/P (MAP) Pulse Ox O2 Delivery O2 Flow Rate FiO2 11/01/21 07:46 92 Nasal Cannula 3.0 11/01/21 07:00 97.7 76 22 163/82 (109) 97.7 General: Alert, No acute distress Lungs: Clear Cardiovascular: S1 Abdomen: Soft, Non-tender, Other (Markedly obese.) Extremities: Other (Lower extremity lymphedema.) Skin: Warm Labs Laboratory Tests Test 10/30/21 11:43 10/31/21 06:15 10/31/21 10:10 11/01/21 04:15 Glucose (Fingerstick) 94 mg/dL (70-99) White Blood Count 2.3 x10^3/uL (4.0-11.0) Red Blood Count 4.08 x10^6/uL (3.50-5.40) Hemoglobin 12.3 g/dL (12.0-15.5) Hematocrit 38.9 % (36.0-47.0) Mean Corpuscular Volume 95 fL (79-100) Mean Corpuscular Hemoglobin 30 pg (25-35) Mean Corpuscular Hemoglobin Concent 32 g/dL (31-37) Red Cell Distribution Width 17.2 % (11.5-14.5) Platelet Count 94 x10^3/uL (140-400) Neutrophils (%) (Auto) 68 % (31-73) Lymphocytes (%) (Auto) 20 % (24-48) Monocytes (%) (Auto) 11 % (0-9) Eosinophils (%) (Auto) 2 % (0-3) Basophils (%) (Auto) 0 % (0-3) Neutrophils # (Auto) 1.5 x10^3/uL (1.8-7.7) Lymphocytes # (Auto) 0.5 x10^3/uL (1.0-4.8) Monocytes # (Auto) 0.2 x10^3/uL (0.0-1.1) Eosinophils # (Auto) 0.0 x10^3/uL (0.0-0.7) Basophils # (Auto) 0.0 x10^3/uL (0.0-0.2) Sodium Level 150 mmol/L (136-145) 151 mmol/L (136-145) Potassium Level 3.6 mmol/L (3.5-5.1) 3.6 mmol/L (3.5-5.1) Chloride Level 107 mmol/L (98-107) 109 mmol/L (98-107) Carbon Dioxide Level > 45 mmol/L (21-32) > 45 mmol/L (21-32) Anion Gap (6-14) (6-14) Blood Urea Nitrogen 32 mg/dL (7-20) 28 mg/dL (7-20) Creatinine 1.1 mg/dL (0.6-1.0) 0.9 mg/dL (0.6-1.0) Estimated GFR (Cockcroft-Gault) 48.6 61.2 Glucose Level 100 mg/dL (70-99) 88 mg/dL (70-99) Calcium Level 8.1 mg/dL (8.5-10.1) 8.0 mg/dL (8.5-10.1) Prothrombin Time 14.2 SEC (11.7-14.0) Prothromb Time International Ratio 1.1 (0.8-1.1) Laboratory Tests Test 10/31/21 10:10 11/01/21 04:15 Prothrombin Time 14.2 SEC (11.7-14.0) Prothromb Time International Ratio 1.1 (0.8-1.1) Sodium Level 151 mmol/L (136-145) Potassium Level 3.6 mmol/L (3.5-5.1) Chloride Level 109 mmol/L (98-107) Carbon Dioxide Level > 45 mmol/L (21-32) Anion Gap (6-14) Blood Urea Nitrogen 28 mg/dL (7-20) Creatinine 0.9 mg/dL (0.6-1.0) Estimated GFR (Cockcroft-Gault) 61.2 Glucose Level 88 mg/dL (70-99) Calcium Level 8.0 mg/dL (8.5-10.1) Medications Active Scripts Medications Dose Route/Sig Max Daily Dose Days Date Category Proair Hfa (Albuterol Sulfate) 8.5 Gm Hfa.aer.ad 2 Puff INH PRN Q6HRS PRN 10/28/21 Reported Milk Of Magnesia (Magnesium Hydroxide) 2,400 Mg/10 Ml Oral.susp 2,400 Mg PO PRN DAILY PRN 10/28/21 Reported Lasix (Furosemide) 40 Mg Tablet 40 Mg PO BID 10/28/21 Reported Duoneb 0.5-3(2.5) Mg/3 Ml (Albuterol/Ipratropium) 3 Ml Ampul.neb 3 Ml NEB PRN Q6HRS PRN 10/28/21 Reported Loperamide (Loperamide Hcl) 2 Mg Tablet 2 Mg PO PRN Q6HRS PRN 10/28/21 Reported Budesonide 0.5 Mg/2 Ml Ampul.neb 0.5 Mg IH PRN BID PRN 10/28/21 Reported Eliquis (Apixaban) 5 Mg Tablet 5 Mg PO BID 10/28/21 Reported Lac-Hydrin Five (Ammonium Lactate) 226 Gm Lotion 1 Zarina TP BID 30 10/28/21 Reported Acetaminophen 500 Mg Tablet 1,000 Mg PO PRN Q6HRS PRN 10/28/21 Reported Impression . 1. The patient with obesity hypoventilation syndrome and chronic hypoxic respiratory failure. She has chronic hypercapnia, which is well compensated on the ABGs. She has not been compliant with her home BiPAP. 2. Morbid obesity. 3. Obesity hypoventilation syndrome. 4. Chronic lymphedema of the lower extremities with component of right heart failure. 5. Chronic anticoagulation secondary to atrial fibrillation. Currently on Eliquis. Also has remote history of DVT 30 years ago. 6. Hyponatremia 7. Prerenal azotemia. 8. Status post thoracentesis 850 cc removed Plan . Updated 11/[address] Us Possible transfer tomorrow Follow-up on pleural fluid analysis 1. Continue present BiPAP at nighttime. 2. Avoid hyperoxia. Reduce the oxygen flow during the day and keep saturation 90% and above. 3. Reduced the dose of diuretics 10/30/2021 due to increasing sodium and prerenal azotemia. 4. Bronchodilators. 5. She was taking Eliquis at home. 6. CT chest reviewed. Patient has persistent moderate right pleural effusion with associated atelectasis. She would benefit from thoracentesis. She is agreeable to proceed. Will hold Eliquis and order thoracentesis by IR for tomorrow 7. Discussed with We will follow along with you. UMAIR BRUNNER MD Nov 01, 2021 08:28
[2021-11-01] MEDS: AMMONIUM LACTATE 12% TOPICAL LOTION 225GM BOTTLE. TP SCH ×2 (08:51→20:44)
[2021-11-01 10:23] VITALS: BP 130/66
--- NOTE | 2021-11-01 10:30 | PDOC ---
DANIAL WREN WAREHOUSE MATERIAL HANDLER 11/01/21 1030: CARDIO Progress Notes Date and Time Date of Service 11/01/21 Time of Evaluation 1030 Subjective Subjective: No Chest Pain, No Palpitations, Other (breathing improved ) Vitals Vitals Vital Signs Date Time Temp Pulse Resp B/P (MAP) Pulse Ox O2 Delivery O2 Flow Rate FiO2 11/01/21 10:23 56 130/66 (87) Nasal Cannula 96.0 11/01/21 07:46 92 11/01/21 07:00 97.7 22 97.7 Weight Weight [ ] Input and Output Intake and Output Intake and Output 11/01/21 07:00 Intake Total 990 ml Output Total 1200 ml Balance -210 ml Intake Oral 990 ml Output Urine Total 1200 ml Laboratory Labs Laboratory Tests Test 11/01/21 04:15 Sodium Level 151 mmol/L (136-145) Potassium Level 3.6 mmol/L (3.5-5.1) Chloride Level 109 mmol/L (98-107) Carbon Dioxide Level > 45 mmol/L (21-32) Anion Gap (6-14) Blood Urea Nitrogen 28 mg/dL (7-20) Creatinine 0.9 mg/dL (0.6-1.0) Estimated GFR (Cockcroft-Gault) 61.2 Glucose Level 88 mg/dL (70-99) Calcium Level 8.0 mg/dL (8.5-10.1) Physical Exam HEENT: Neck Supple W Full Motion Chest: Symmetric LUNGS: Other (diminished bases) Heart: irregularly irregular (AFIB) Abdomen: Other (obese) Extremities: Other (chronic venous stasis changes, lower extremity lymphedema) Neurology: alert, oriented, follow commands Assessment Assessment 1. Acute respiratory failure; multifactorial secondary to a/c CHF, PHYLICIA, obesity hypoventilation, and pleural effusion. s/p thoracentesis with 850 cc off 2. Acute on chronic diastolic CHF; Recent 2D echo showed normal LV systolic function. Better compensated after diuresis with Lasix. 3. Permanent AFIB; rate controlled Rate controlled. Patient was previously on warfarin that was stopped by [facility] cardiology for uncertain reasons. 4. Hypertension; controlled 5. Mild troponin elevation; high sensitivity trop peak 113. Type II, demand ischemia. CP free. 6. Morbid obesity, obesity hypoventilation, obstructive sleep apnea. Treat per primary team. 7. Pleural effusion; plans for thoracentesis. Eliquis on hold. 8. Hypernatremia 9. Leukopenia Recommendations Discussed with Dr. Us. Will hold Lasix with hypernatremia Apply compression stockings Cardizem for rate control Resume Eliquis in am Consider ischemic evaluation as an outpatient Supportive care. Follow up in our office with Dr. Lopez has been arranged Justicifation of Admission Dx: Justifications for Admission: Justification of Admission Dx: Yes EDWIN LOPEZ MD 11/01/21 1548: CARDIO Progress Notes Assessment Assessment Patient seen and examined. Agree with NET SQL DEVELOPER's assessment and plan. s/p thoracentesis with removal of 850 cc Permanent atrial fibrillation rate controlled. Acute on chronic diastolic heart failure better compensated. Resume Eliquis in the morning Culture ischemic evaluation as outpatient. DANIAL WREN APRN Nov 01, 2021 10:30 EDWIN LOPEZ MD Nov 01, 2021 15:48
--- NOTE | 2021-11-01 11:42 | RAD ---
Procedure: US GUIDED THORACENTESIS 11/01/2021 Clinical Indication: Pleural effusion Anesthesia: Local anesthesia only. Continuous cardiopulmonary monitoring was performed by independent qualified nursing personnel. Complications: None Consent: The procedure was explained in its entirety to the patient or the patients designated repre sentative by a member of the treatment team, including a discussion of the risks, benefits and common ly accepted alternatives to the procedure, as well as the expected consequences of no therapy whatsoe kei. Discussion of the risks included, but was not limited to, those that are most frequent and those that are rare but possibly severe or life-threatening, as well as the possibility of unforeseen comp lications. All questions were answered and informed consent was obtained. Sterility: All elements of maximal sterile barrier technique including the use of a cap, mask, steril e gown, sterile gloves, appropriate hand hygiene, and 2% chlorhexidine for cutaneous antisepsis (or a cceptable alternative antiseptic per current guidelines) were followed for this procedure. Patient was placed in the upright position. Limited ultrasound scanning over the back for localizatio n of the right pleural effusion. Overlying skin posteriorly was marked with ultrasound and then anderson rilely prepped and draped. Local anesthesia with 1% lidocaine. A 5 Fr Yueh catheter was then entere d into the pleural space and 850 cc of red-tinged fluid was were obtained utilizing negative suction bottles. Samples were sent for lab analysis. There were no immediate complications. Sterile dressing was placed. Impression: Right ultrasound-guided thoracentesis, 850 cc of red-tinged fluid was removed. Electronically signed by: Rubin Sauceda (11/01/2021 11:40 AM) [id number]
--- NOTE | 2021-11-01 12:10 | NUR ---
SS following up with discharge planning. SS reviewed pt chart and discussed with pt RN. Pt is currently requiring oxygen at three liters nasal canula. Pt has home oxygen and home BIPAP. COVID19 negative at [facility] on 10/27/2021. Pt had Thoracentesis today. Pt is skilled rehabilitation resident from [facility], ; fax [phone]. PT/OT orders requested. Clinical updates phoned and faxed to [facility]. SS will continue to follow for discharge planning.
--- NOTE | 2021-11-01 13:25 | PN ---
DATE: 11/01/2021 SUBJECTIVE: The patient is resting, slightly propped up in bed, in no apparent respiratory distress. On questioning her, she denied any complaint, in particular, denied any chest pain, shortness of breath, orthopnea or paroxysmal nocturnal dyspnea. Denied any cough, phlegm or hemoptysis. She has had her thoracentesis done successfully this morning and about 850 mL of blood-tinged fluids were removed after holding her Eliquis. OBJECTIVE: GENERAL: On examining her, she was somewhat pale, not jaundiced or cyanosed, no lymphadenopathy, no thyromegaly, no jugular venous distention, but mild bilateral lower limb edema. VITAL SIGNS: Her heart rate was 56, blood pressure was 130/66, temperature was 97.7, respiratory rate was 22, and oxygen saturation was 95% on 3 liters of oxygen by nasal cannula. HEAD, EYES, EARS, NOSE, AND THROAT: Normocephalic, atraumatic. NECK: Supple. HEART: Showed normal first and second heart sounds. No gallop, rub or murmur. CHEST: Showed central trachea, equal bilateral chest expansion, air entry, vesicular breath sounds with no crepitation or rhonchi anteriorly, does have dull percussion noted and absent breath sounds, more so on the left than the right. ABDOMEN: Distended, soft, nontender. NEUROLOGIC: She is awake, alert, responding appropriately. All her cranial nerves are intact. She moves upper extremities to much good extent than lower extremities and she is mostly bedbound, wheelchair bound. Her intake was 860, output was 1250. LABORATORY DATA: As of this morning, her serum sodium continued to be high at 151 mEq/L, potassium 3.6, chloride 109, bicarbonate 45, anion gap of 0, BUN 28, creatinine 0.9, estimated GFR was 61 mL per minute, her glucose was 88 and calcium was 8. ASSESSMENT: 1. Acute on chronic hypoxic hypercapnic respiratory failure, likely multifactorial. 2. Acute on chronic diastolic congestive heart failure, seems to be clinically well compensated. 3. Morbid obesity. 4. Obstructive sleep apnea. 5. Obesity hypoventilation syndrome. 6. Persistent atrial fibrillation, rate controlled, well anticoagulated. 7. Hypertension. 8. Hyperlipidemia. 9. Leukopenia and thrombocytopenia. 10. Bilateral pleural effusion, more on the right than left, status post thoracentesis and drainage of about 850 mL of blood-tinged fluid. PLAN: To hold her diuretics today and we will resume the Lasix and apixaban tomorrow. I will also discharge her back to [facility]. CHEN/DIGNA DR: Rigo TID: [id number]
[2021-11-01 15:00] VITALS: BP 140/65
[2021-11-01 19:00] VITALS: BP 147/76
[2021-11-01 22:49] VITALS: BP 148/82
[2021-11-02 03:00] VITALS: BP 99/65
[2021-11-02] MEDS: BUDESONIDE 0.5 MG/2 ML NEBU. NEB SCH (06:24)
[2021-11-02 07:38] VITALS: BP 154/79
--- NOTE | 2021-11-02 08:08 | PDOC ---
PULMONARY PROGRESS NOTES DATE: 11/02/21 TIME: 08:08 Subjective No new complaint patient feels better status post thoracentesis normally on 4 L of oxygen at the rehab Vitals Vital Signs Date Time Temp Pulse Resp B/P (MAP) Pulse Ox O2 Delivery O2 Flow Rate FiO2 11/02/21 07:38 98.1 83 20 154/79 (104) 97 Nasal Cannula 4.0 98.1 General: Alert, No acute distress Lungs: Clear Cardiovascular: S1 Abdomen: Soft, Non-tender, Other (Markedly obese.) Extremities: Other (Lower extremity lymphedema.) Skin: Warm Labs Laboratory Tests Test 10/31/21 10:10 11/01/21 04:15 Prothrombin Time 14.2 SEC (11.7-14.0) Prothromb Time International Ratio 1.1 (0.8-1.1) Sodium Level 151 mmol/L (136-145) Potassium Level 3.6 mmol/L (3.5-5.1) Chloride Level 109 mmol/L (98-107) Carbon Dioxide Level > 45 mmol/L (21-32) Anion Gap (6-14) Blood Urea Nitrogen 28 mg/dL (7-20) Creatinine 0.9 mg/dL (0.6-1.0) Estimated GFR (Cockcroft-Gault) 61.2 Glucose Level 88 mg/dL (70-99) Calcium Level 8.0 mg/dL (8.5-10.1) Medications Active Scripts Medications Dose Route/Sig Max Daily Dose Days Date Category Proair Hfa (Albuterol Sulfate) 8.5 Gm Hfa.aer.ad 2 Puff INH PRN Q6HRS PRN 10/28/21 Reported Milk Of Magnesia (Magnesium Hydroxide) 2,400 Mg/10 Ml Oral.susp 2,400 Mg PO PRN DAILY PRN 10/28/21 Reported Lasix (Furosemide) 40 Mg Tablet 40 Mg PO BID 10/28/21 Reported Duoneb 0.5-3(2.5) Mg/3 Ml (Albuterol/Ipratropium) 3 Ml Ampul.neb 3 Ml NEB PRN Q6HRS PRN 10/28/21 Reported Loperamide (Loperamide Hcl) 2 Mg Tablet 2 Mg PO PRN Q6HRS PRN 10/28/21 Reported Budesonide 0.5 Mg/2 Ml Ampul.neb 0.5 Mg IH PRN BID PRN 10/28/21 Reported Eliquis (Apixaban) 5 Mg Tablet 5 Mg PO BID 10/28/21 Reported Lac-Hydrin Five (Ammonium Lactate) 226 Gm Lotion 1 Zarina TP BID 30 10/28/21 Reported Acetaminophen 500 Mg Tablet 1,000 Mg PO PRN Q6HRS PRN 10/28/21 Reported Impression . 1. The patient with obesity hypoventilation syndrome and chronic hypoxic respiratory failure. She has chronic hypercapnia, which is well compensated on the ABGs. She has not been compliant with her home BiPAP. 2. Morbid obesity. 3. Obesity hypoventilation syndrome. 4. Chronic lymphedema of the lower extremities with component of right heart failure. 5. Chronic anticoagulation secondary to atrial fibrillation. Currently on Eliquis. Also has remote history of DVT 30 years ago. 6. Hyponatremia 7. Prerenal azotemia. 8. Status post thoracentesis 850 cc removed Plan . Updated 11/02 Cultures negative on pleural fluid Okay to transfer/discharge updated 11/[address] Us Possible transfer tomorrow Follow-up on pleural fluid analysis UMAIR BRUNNER MD Nov 02, 2021 08:08
[2021-11-02] MEDS: AMMONIUM LACTATE 12% TOPICAL LOTION 225GM BOTTLE. TP SCH (08:20)
[2021-11-02 10:32] VITALS: BP 143/64
--- NOTE | 2021-11-02 12:50 | NUR ---
SS following up with discharge planning. SS reviewed pt chart and discussed with pt RN. Pt is currently requiring oxygen at two liters nasal canula. COVID19 negative. PT/OT recommended alf unit. Discharge orders received for return to [facility], ; fax [phone], and phoned and faxed to facility. Pt will discharge today and return to [facility] at 1700 via stretcher transportation. Pt and pt's RN notified.
[2021-11-02 13:09] LABS: BLOOD UREA NITROGEN 26 mg/dL (7-20); CALCIUM 8.2 mg/dL (8.5-10.1); CHLORIDE 105 mmol/L (98-107); CREATININE 1.1 mg/dL (0.6-1.0); GFR 48.6; GLUCOSE 126 mg/dL (70-99); SODIUM 151 mmol/L (136-145)
[2021-11-02 13:39] LABS: CARBON DIOXIDE > 45 mmol/L (21-32)
[2021-11-02] MEDS: ACETAMINOPHEN 500 MG TABLET PO PRN (13:49)
--- NOTE | 2021-11-02 14:07 | PATHOLOGY ---
Note [facility] Accession Number: [id number] TESTS RESULT FLAG UNITS REF RANGE LAB Clinician Provided Cytology Information No. of containers..01 Other (Miscellaneous) Source: RT PLEURAL DIAGNOSIS: RT PLEURAL NEGATIVE FOR MALIGNANT CELLS. FOCALLY REACTIVE MESOTHELIAL CELLS ARE PRESENT. THIS EVALUATION INCLUDES EXAMINATION OF A CELL BLOCK. Signed out by: Wilton Maradiaga MD, Pathologist NPI- [id number] Performed by: Tracey Woodward, Sap Bpc Developer ([facility]) Gross description: 01 30ML, RED/ORANGE, CLOUDY /LCS 11/02/2021 0201 Local FLAG LEGEND: L-Low Normal,H-High Normal,LL-Alert Low,HH-Alert High <-Panic Low,>-Panic High,A-Abnormal,AA-Critical Abnormal Performed at: [facility] [address] [place] [address] Varun Fall MD, [address] [facility] [address] [place] [address] Wilton Maradiaga MD, Specimen Comment: A courtesy copy of this report has been sent to [phone], [phone] Specimen Comment: [id number], , , Specimen Comment: Report sent to DR. GRAY, DR GRIMALDO, DR MOJICA Specimen Comment: DR GUAN / DR ROSALES Performed at: [address], [place], [place] [id number] MD Varun Fall MD Phone: [phone]
--- NOTE | 2021-11-02 14:14 | PDOC ---
DANIAL WREN SENIOR BUSINESS CONSULTANT 11/02/21 1414: CARDIO Progress Notes Date and Time Date of Service 11/02/21 Time of Evaluation 1210 Subjective Subjective: No Chest Pain, No Palpitations, Other (breathing improved ) Vitals Vitals Vital Signs Date Time Temp Pulse Resp B/P (MAP) Pulse Ox O2 Delivery O2 Flow Rate FiO2 11/02/21 10:32 97.7 82 20 143/64 (90) 95 Nasal Cannula 4.0 97.7 Weight Weight [ ] Input and Output Intake and Output Intake and Output 11/02/21 07:00 Intake Total 420 ml Output Total 900 ml Balance -480 ml Intake Oral 420 ml Output Urine Total 900 ml Laboratory Labs Laboratory Tests Test 11/02/21 07:40 11/02/21 11:05 Glucose (Fingerstick) 73 mg/dL (70-99) Sodium Level 151 mmol/L (136-145) Potassium Level 4.0 mmol/L (3.5-5.1) Chloride Level 105 mmol/L (98-107) Carbon Dioxide Level > 45 mmol/L (21-32) Anion Gap (6-14) Blood Urea Nitrogen 26 mg/dL (7-20) Creatinine 1.1 mg/dL (0.6-1.0) Estimated GFR (Cockcroft-Gault) 48.6 Glucose Level 126 mg/dL (70-99) Calcium Level 8.2 mg/dL (8.5-10.1) Microbiology Micro Microbiology 11/01/21 Gram Stain - Final, Resulted 11/01/21 Aerobic and Anaerobic Culture - Preliminary, Resulted Physical Exam HEENT: Neck Supple W Full Motion Chest: Symmetric LUNGS: Other (diminished bases) Heart: irregularly irregular (AFIB) Abdomen: Other (obese) Extremities: Other (chronic venous stasis changes, lower extremity lymphedema) Neurology: alert, oriented, follow commands Assessment Assessment 1. Acute respiratory failure; multifactorial secondary to a/c CHF, PHYLICIA, obesity hypoventilation, and pleural effusion. s/p thoracentesis with 850 cc off 2. Acute on chronic diastolic CHF; Recent 2D echo showed normal LV systolic function. Better compensated after diuresis with Lasix. 3. Permanent AFIB; rate controlled 4. Hypertension; controlled 5. Mild troponin elevation; high sensitivity trop peak 113. Type II, demand ischemia. CP free. 6. Morbid obesity, obesity hypoventilation, obstructive sleep apnea. Treat per primary team. 7. Hypernatremia; increase free water 8. Leukopenia Recommendations Oral Lasix Tubigrip stockings Cardizem for rate control Resume Eliquis for stroke prophylaxis Consider ischemic evaluation as an outpatient Supportive care. Follow up in our office with Dr. Lopez has been arranged Justicifation of Admission Dx: Justifications for Admission: Justification of Admission Dx: Yes EDWIN LOPEZ MD 11/02/21 1730: CARDIO Progress Notes Assessment Assessment Patient seen and examined. Agree with METER ENGINEER's assessment and plan. s/p thoracentesis with removal of 850 cc Permanent atrial fibrillation rate controlled. Continue Eliquis for stroke prophylaxis Acute on chronic diastolic heart failure better compensated. Culture ischemic evaluation as outpatient. DANIAL WREN APRN Nov 02, 2021 14:14 EDWIN LOPEZ MD Nov 02, 2021 17:30
[2021-11-02 14:28] VITALS: BP 138/68
[2021-11-02] MEDS ORDERED: ANTI-COAG MONITOR BY PHARMACY. MC PRN (14:30)
[2021-11-02] MEDS ORDERED: APIXABAN 5 MG TABLET. PO SCH (15:00)
== END 2021-11-02 17:45 | DRG 280 ==
LOC: 6 SOUTH 16:02
PROVIDERS: ADMIT Internal Medicine; ATTEND Internal Medicine
PROC: 02HV33Z Insertion of Infusion Device into Superior Vena Cava, Percutaneous Approach (ICD-10-PCS; 2021-10-28)
PROC: 5A09357 Assistance with Respiratory Ventilation, Less than 24 Consecutive Hours, Continuous Positive Airway Pressure (ICD-10-PCS; 2021-10-29)
PROC: 5A09357 Assistance with Respiratory Ventilation, Less than 24 Consecutive Hours, Continuous Positive Airway Pressure (ICD-10-PCS; 2021-10-30)
PROC: 5A09357 Assistance with Respiratory Ventilation, Less than 24 Consecutive Hours, Continuous Positive Airway Pressure (ICD-10-PCS; 2021-10-31)
PROC: 0W993ZZ Drainage of Right Pleural Cavity, Percutaneous Approach (ICD-10-PCS; principal; 2021-11-01)
PROC: 5A09357 Assistance with Respiratory Ventilation, Less than 24 Consecutive Hours, Continuous Positive Airway Pressure (ICD-10-PCS; 2021-11-02)
DX: I11.0 Hypertensive heart disease with heart failure (principal); J96.22 Acute and chronic respiratory failure with hypercapnia; I21.A1 Myocardial infarction type 2; I50.33 Acute on chronic diastolic (congestive) heart failure; J96.21 Acute and chronic respiratory failure with hypoxia; E87.1 Hypo-osmolality and hyponatremia; E66.2 Morbid (severe) obesity with alveolar hypoventilation; E87.0 Hyperosmolality and hypernatremia; I48.21 Permanent atrial fibrillation; J98.11 Atelectasis; Z68.43 Body mass index [BMI] 50.0-59.9, adult; D69.6 Thrombocytopenia, unspecified; D72.819 Decreased white blood cell count, unspecified; E78.5 Hyperlipidemia, unspecified; I50.82 Biventricular heart failure; I89.0 Lymphedema, not elsewhere classified; Z79.01 Long term (current) use of anticoagulants; Z86.718 Personal history of other venous thrombosis and embolism; Z91.19 Patient's noncompliance with other medical treatment and regimen; Z74.01 Bed confinement status
CPT/HCPCS: 32555; 36415; 36600; 71045; 71250; 80048; 80053; 82805; 82962; 83615; 84157; 85025; 85610; 87071; 87075; 87077; 88112; 88305; 94640; 94660; 94760; 97530-GP; 97535-GO; G0378; J7626